=== PATIENT | male | born 1965 | race American Indian/Alaskan Native ===

== ENCOUNTER 2020-01-22 10:43 | Emergency (ER) | payer MEDICARE ==
[2020-01-22 11:23] VITALS: BP 148/82
--- NOTE | 2020-01-22 11:23 | Emergency Department Report ---
ED General Adult HPI - General Chief complaint: Headache Stated complaint: HEADACHE Time Seen by Provider: 01/22/20 10:52 Source: patient, EMS Mode of arrival: Stretcher Limitations: Physical Limitation - History of Present Illness Initial comments: 54-year-old male states he had a seizure last night and hit the right parietal occipital area of his skull on the wall. He states that EMS was summoned to his residence. However he felt fine and declined transport. This morning he states that he woke up with blurred vision. He states that he was having difficulty walking due to his blurred vision but not due to a loss of balance. He states that he walks with a cane ordinarily. 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 He states that his vision is back to normal now. He states that he has "a stigmatism". He is not complaining of headache. He denies soreness at the site where his head hit the wall or any pain of his neck. He denies any other injury. He woke up before 8:00 this morning. -: Gradual, hour(s) Associated Symptoms: denies other symptoms - Related Data Allergies Allergy/AdvReac Type Severity Reaction Status Date / Time No Known Allergies Allergy Unverified 04/11/18 03:26 ED Review of Systems ROS: Stated complaint: HEADACHE Other details as noted in HPI Constitutional: denies: chills, fever Eyes: vision change. denies: eye pain ENT: denies: ear pain, throat pain Respiratory: denies: cough, shortness of breath Cardiovascular: denies: chest pain, palpitations Endocrine: no symptoms reported Gastrointestinal: denies: abdominal pain, nausea, diarrhea Genitourinary: denies: urgency, dysuria Musculoskeletal: denies: back pain, joint swelling, arthralgia Skin: denies: rash, lesions Neurological: as per HPI. denies: headache, weakness, numbness, paresthesias, confusion, vertigo Psychiatric: denies: anxiety, depression Hematological/Lymphatic: denies: easy bleeding, easy bruising ED Past Medical Hx - Past Medical History Previous Medical History?: Yes Hx CVA: Yes Hx Seizures: Yes Additional medical history: Fracture neck, TBI - Social History Smoking Status: Never Smoker Substance Use Type: None ED Physical Exam - General Limitations: Physical Limitation General appearance: alert, in no apparent distress - Head Head exam: Present: normocephalic, other (Deformity of the calvarium/surgical scar, suspect old decompressive craniotomy) - Eye Eye exam: Present: normal appearance, other (Strabismus is noted). Absent: scleral icterus Pupils: Present: other (Denies any loss of acuity now) - ENT ENT exam: Present: mucous membranes moist - Neck Neck exam: Present: normal inspection. Absent: tenderness, meningismus - Respiratory Respiratory exam: Present: normal lung sounds bilaterally. Absent: respiratory distress - Cardiovascular Cardiovascular Exam: Present: regular rate, normal rhythm. Absent: systolic murmur, diastolic murmur, rubs, gallop - GI/Abdominal GI/Abdominal exam: Present: soft, normal bowel sounds. Absent: distended, t enderness, guarding, rebound, rigid - Rectal Rectal exam: Present: deferred - Extremities Exam Extremities exam: Present: other (Contracted left upper extremity) - Back Exam Back exam: Present: normal inspection - Neurological Exam Neurological exam: Present: alert, oriented X3, motor sensory deficit (Left hemiparesis, upper extremity is contracted lower 4 out of 5 compared with right.) - Psychiatric Psychiatric exam: Present: normal affect, normal mood - Skin Skin exam: Present: warm, dry, intact, normal color. Absent: rash ED Course Vital Signs 01/22/20 01/22/20 01/22/20 10:53 10:58 11:00 Temperature 97.8 F Pulse Rate 79 81 Respiratory 21 10 L Rate Blood Pressure 145/87 148/82 O2 Sat by Pulse 97 98 Oximetry - Reevaluation(s) Reevaluation #1: Patient in no distress and asymptomatic. Visual disturbance has resolved. He is appropriate for outpatient disposition. 01/22/20 12:37 ED Medical Decision Making - Lab Data Result diagrams: 01/22/20 11:08 01/22/20 11:08 Laboratory Results - last 24 hr 01/22/20 01/22/20 01/22/20 11:08 11:08 11:08 WBC 6.4 RBC 4.50 Hgb 13.3 Hct 41.0 MCV 91 MCH 30 MCHC 32 RDW 14.3 Plt Count 302 Lymph % (Auto) 15.3 [place] % (Auto) 8.8 H Eos % (Auto) 1.2 Baso % (Auto) 0.7 Lymph # (Auto) 1.0 L [place] # (Auto) 0.6 Eos # (Auto) 0.1 Baso # (Auto) 0.0 Seg Neutrophils % 74.0 H Seg Neutrophils # 4.7 PT 13.7 INR 1.04 APTT 27.9 Sodium 142 Potassium 3.9 Chloride 104.2 Carbon Dioxide 27 Anion Gap 15 BUN 8 L Creatinine 0.9 Estimated GFR > 60 BUN/Creatinine Ratio 9 Glucose 104 H Calcium 8.9 - Radiology Data FINDINGS: POSTOPERATIVE CHANGES: Patient is status post right frontal and parietal craniotomy. A mesh cranioplasty is in place. There is associated calvarial deformity. HEMORRHAGE: No evidence of intracranial hemorrhage or extra-axial fluid collection. EXTRA-AXIAL SPACES: Dilatation of cortical sulci over the right cerebral hemisphere is noted secondary to remote brain injury. VENTRICULAR SYSTEM: There is ex vacuo dilatation of the right lateral ventricle. This is unchanged. CEREBRAL PARENCHYMA: Large areas of encephalomalacia are present in the right frontal, parietal and occipital lobes. Temporal lobe is relatively spared. MIDLINE SHIFT OR HERNIATION: There is no mass effect. CEREBELLUM / BRAINSTEM: Atrophy of the right cerebral peduncle is noted secondary to Wallerian generation due to remote injury of the right cerebral hemisphere. Brain stem has an otherwise unremarkable appearance. Cerebellar hemispheres have an unremarkable appearance. 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 This is unchanged. INTRACRANIAL VESSELS:No abnormalities are identified on this noncontrast head CT. ORBITS: visualized portions of the orbits have an unremarkable appearance. SOFT TISSUES of HEAD: No significant abnormality. CALVARIUM: Status post operative changes as described above. PARANASAL SINUSES / MASTOID AIR CELLS: There is opacification of the right maxillary sinus. Mucosal disease is seen within several right-sided ethmoid air cells. 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 IMPRESSION: 1. Postoperative changes status post right frontal and parietal craniotomy. 2. Extensive encephalomalacia throughout the right cerebral hemisphere. 3. 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 4. Intracranial findings are stable in comparison to previous study. 5. No acute intracranial abnormality. 6. Interval development of opacification of the right maxillary sinus and mucosal thickening in several right-sided ethmoid air cells. Critical care attestation.: If time is entered above; I have spent that time in minutes in the direct care of this critically ill patient, excluding procedure time. ED Disposition Clinical Impression: Seizure, Visual disturbance Traumatic brain injury Qualifiers: Encounter type: sequela Loss of consciousness presence/duration: without LOC Qualified Code(s): S06.9X0S - Unspecified intracranial injury without loss of consciousness, sequela Disposition: TO HOME OR SELFCARE Is pt being admited?: No Does the pt Need Aspirin: No Condition: Stable Instructions: Recurrent Seizures Adult (ED) Additional Instructions: Continue your usual seizure medicine and follow-up with your neurology provider/primary care. Return to the emergency department any acute change or problem. See his eye doctor any recurrent visual problem. Referrals: ROSALIE NIXON MD [Staff Physician] - 3-5 Days Time of Disposition: 12:39
[2020-01-22 11:32] LABS: Basophils % (Auto) 0.7 % (0.0-1.8); Eosinophils # (Auto) 0.1 K/mm3 (0.0-0.4); Eosinophils % (Auto) 1.2 % (0.0-4.3); Hemoglobin 13.3 gm/dl (11.8-15.2); Lymphocytes % (Auto) 15.3 % (13.4-35.0); Mean Corpuscular HGB Conc 32 % (32-34); Mean Corpuscular Volume 91 fl (84-94); Monocytes # (Auto) 0.6 K/mm3 (0.0-0.8); Monocytes % (Auto) 8.8 % (0.0-7.3); Platelet Count 302 K/mm3 (140-440); Red Cell Distribution Width 14.3 % (13.2-15.2)
[2020-01-22 11:42] LABS: INR 1.04 (0.87-1.13)
[2020-01-22 11:44] LABS: Partial Thromboplastin Time 27.9 Sec. (24.2-36.6)
[2020-01-22 11:52] LABS: BUN/Creatinine Ratio 9; Blood Urea Nitrogen 8 mg/dL (9-20); Calcium 8.9 mg/dL (8.4-10.2); Hemolysis Index 12
--- NOTE | 2020-01-22 11:54 | Cat Scan Report ---
CT HEAD WITHOUT CONTRAST INDICATION / CLINICAL INFORMATION: Seizure. Blurred vision. History of recent fall. Remote history of neurosurgical procedure. TECHNIQUE: All CT scans at this location are performed using CT dose reduction for ALARA by means of automated e xposure control. COMPARISON: Head CT 04/11/2018 FINDINGS: POSTOPERATIVE CHANGES: Patient is status post right frontal and parietal craniotomy. A mesh craniopla sty is in place. There is associated calvarial deformity. HEMORRHAGE: No evidence of intracranial hemorrhage or extra-axial fluid collection. EXTRA-AXIAL SPACES: Dilatation of cortical sulci over the right cerebral hemisphere is noted secondar y to remote brain injury. VENTRICULAR SYSTEM: There is ex vacuo dilatation of the right lateral ventricle. This is unchanged. CEREBRAL PARENCHYMA: Large areas of encephalomalacia are present in the right frontal, parietal and o ccipital lobes. Temporal lobe is relatively spared. MIDLINE SHIFT OR HERNIATION: There is no mass effect. CEREBELLUM / BRAINSTEM: Atrophy of the right cerebral peduncle is noted secondary to Wallerian genera tion due to remote injury of the right cerebral hemisphere. Brain stem has an otherwise unremarkable appearance. Cerebellar hemispheres have an unremarkable appearance. Incidental note is made of a bhakti cisterna magna. MIDLINE STRUCTURES:No abnormalities of the pituitary gland or pineal region are identified.Note is ma de of a sphenoid encephalocele extending into the anterior aspect of the right sphenoid sinus. This i s unchanged. INTRACRANIAL VESSELS:No abnormalities are identified on this noncontrast head CT. ORBITS: visualized portions of the orbits have an unremarkable appearance. SOFT TISSUES of HEAD: No significant abnormality. CALVARIUM: Status post operative changes as described above. PARANASAL SINUSES / MASTOID AIR CELLS: There is opacification of the right maxillary sinus. Mucosal d isease is seen within several right-sided ethmoid air cells. 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 IMPRESSION: 1. Postoperative changes status post right frontal and parietal craniotomy. 2. Extensive encephalomalacia throughout the right cerebral hemisphere. 3. 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 4. Intracranial findings are stable in comparison to previous study. 5. No acute intracranial abnormality. 6. Interval development of opacification of the right maxillary sinus and mucosal thickening in sever al right-sided ethmoid air cells. Signer Name: Luis Dong MD Signed: 01/22/2020 11:50 AM Workstation Name: [employer]
[2020-01-22] MEDS ORDERED: HYDROmorphone 1 MG/1 ML INJ IV ONE (12:35)
[2020-01-22] MEDS ORDERED: diphenhydrAMINE 50 MG/ML VIAL IV ONE (12:35)
[2020-01-22] MEDS ORDERED: ONDANSETRON 4 MG/2 ML INJ IV ONE (12:35)
[2020-01-22 13:06] LABS: Alanine Aminotransferase 12 units/L (7-56); Albumin 3.9 g/dL (3.9-5)
[2020-01-22 13:18] LABS: Bilirubin,Direct < 0.2 mg/dL (0-0.2)
== END 2020-01-22 13:30 | disposition home or self-care (01) ==
LOC: ED 10:43
DX: S06.9X0S Unspecified intracranial injury without loss of consciousness, sequela (principal); R56.9 Unspecified convulsions; H53.8 Other visual disturbances; Y92.89 Other specified places as the place of occurrence of the external cause; Z86.73 Personal history of transient ischemic attack (TIA), and cerebral infarction without residual deficits
CPT/HCPCS: 36415; 70450; 80048; 80076; 84100; 85025; 85610; 85730

== ENCOUNTER 2020-02-05 22:40 | Emergency (ER) | payer MEDICARE ==
[2020-02-05 23:39] VITALS: BP 147/95
== END 2020-02-06 06:29 | disposition left against medical advice (07) ==
LOC: ED 22:40
DX: M79.605 Pain in left leg (principal); Z53.21 Procedure and treatment not carried out due to patient leaving prior to being seen by health care provider

== ENCOUNTER 2020-02-07 10:48 | Emergency (ER) | payer MEDICARE ==
[2020-02-07 12:33] LABS: Basophils % (Auto) 0.5 % (0.0-1.8); Eosinophils # (Auto) 0.1 K/mm3 (0.0-0.4); Eosinophils % (Auto) 1.8 % (0.0-4.3); Hematocrit 38.7 % (35.5-45.6); Hemoglobin 12.7 gm/dl (11.8-15.2); Lymphocytes # (Auto) 1.3 K/mm3 (1.2-5.4); Mean Corpuscular HGB Conc 33 % (32-34); Mean Corpuscular Volume 90 fl (84-94); Monocytes # (Auto) 0.7 K/mm3 (0.0-0.8); Monocytes % (Auto) 9.5 % (0.0-7.3); Platelet Count 295 K/mm3 (140-440); Red Cell Distribution Width 14.7 % (13.2-15.2)
[2020-02-07 13:09] LABS: Alanine Aminotransferase 17 units/L (7-56); Albumin 4.3 g/dL (3.9-5); BUN/Creatinine Ratio 13; Blood Urea Nitrogen 10 mg/dL (9-20); Calcium 8.8 mg/dL (8.4-10.2); Hemolysis Index 20
--- NOTE | 2020-02-07 15:33 | Emergency Department Report ---
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 Patient is compliant with his Keppra 1500 mg twice daily with last dose this morning. Patient complains of a frontal headache but typically has headaches after his seizures. Patient denies any new neurologic deficit. He uses a cane for left-sided weakness. Patient complains of left medial ankle pain secondary to fall 3 days ago. Patient states he has had a seizure 2 days ago. Patient did present here for left after triage and was not seen by provider as per medical. - Related Data Previous Rx's Medication Instructions Recorded Last Taken Type HYDROcodone/APAP 5-325 [[place] 1 each PO Q6HR PRN #15 tablet 02/07/20 Unknown Rx 5/325] levETIRAcetam [Keppra TAB] 2,000 mg PO BID 30 Days tab 02/07/20 Unknown Rx Allergies Allergy/AdvReac Type Severity Reaction Status Date / Time No Known Allergies Allergy Verified 02/07/20 16:12 ED Review of Systems ROS: Stated complaint: 2X SEIZURE Other details as noted in HPI Comment: All other systems reviewed and negative ED Past Medical Hx - Past Medical History Hx CVA: Yes (left side weakness) Hx Seizures: Yes Additional medical history: Fracture neck, TBI - Surgical History Additional Surgical History: brain - Social History Smoking Status: Never Smoker Substance Use Type: None - Medications Home Medications: Home Medications Medication Instructions Recorded Confirmed Last Taken Type HYDROcodone/APAP 5-325 [[place] 1 each PO Q6HR PRN #15 tablet 02/07/20 Unknown Rx 5/325] levETIRAcetam [Keppra TAB] 2,000 mg PO BID 30 Days tab 02/07/20 Unknown Rx ED Physical Exam - General Limitations: No Limitations - Other Other exam information: General: No acute distress Head: Atraumatic Eyes: normal appearance ENT: Moist mucous membranes Neck: Normal appearance, no midline tenderness Chest: Clear to auscultation bilaterally CV: Regular rate and rhythm Abdomen: Soft, normal bowel sounds, nontender, nondistended, no rebound or guarding Back: Normal inspection Extremity: Left medial ankle swelling. Tenderness palpation to left ankle, pain with bearing weight. Diffuse foot pain. Neuro: Alert O x 3, left-sided weakness with contracture of the left arm and limited movement. Left leg weakness compared to the right chronic unchanged as per patient Psych: Appropriate behavior Skin: No rash ED Course Vital Signs 02/07/20 02/07/20 02/07/20 11:50 15:31 16:00 Temperature 98.1 F Pulse Rate 71 Respiratory 20 Rate Blood Pressure 147/76 151/79 Blood Pressure 149/86 [Left] O2 Sat by Pulse 100 97 94 Oximetry ED Medical Decision Making - Lab Data Result diagrams: 02/07/20 Unknown 02/07/20 Unknown Lab Results 02/07/20 02/07/20 Range/Units Unknown Unknown WBC 7.5 (4.5-11.0) K/mm3 RBC 4.30 (3.65-5.03) M/mm3 Hgb 12.7 (11.8-15.2) gm/dl Hct 38.7 (35.5-45.6) % MCV 90 (84-94) fl MCH 30 (28-32) pg MCHC 33 (32-34) % RDW 14.7 (13.2-15.2) % Plt Count 295 (140-440) K/mm3 Lymph % (Auto) 17.0 (13.4-35.0) % [place] % (Auto) 9.5 H (0.0-7.3) % Eos % (Auto) 1.8 (0.0-4.3) % Baso % (Auto) 0.5 (0.0-1.8) % Lymph # (Auto) 1.3 (1.2-5.4) K/mm3 [place] # (Auto) 0.7 (0.0-0.8) K/mm3 Eos # (Auto) 0.1 (0.0-0.4) K/mm3 Baso # (Auto) 0.0 (0.0-0.1) K/mm3 Seg Neutrophils % 71.2 H (40.0-70.0) % Seg Neutrophils # 5.3 (1.8-7.7) K/mm3 Sodium 140 (137-145) mmol/L Potassium 4.0 (3.6-5.0) mmol/L Chloride 102.8 (98-107) mmol/L Carbon Dioxide 23 (22-30) mmol/L Anion Gap 18 mmol/L BUN 10 (9-20) mg/dL Creatinine 0.8 (0.8-1.3) mg/dL Estimated GFR > 60 ml/min BUN/Creatinine Ratio 13 % Glucose 106 H (75-100) mg/dL Calcium 8.8 (8.4-10.2) mg/dL Total Bilirubin 0.40 (0.1-1.2) mg/dL AST 15 (5-40) units/L ALT 17 (7-56) units/L Alkaline Phosphatase 98 (35-129) units/L Total Protein 6.9 (6.3-8.2) g/dL Albumin 4.3 (3.9-5) g/dL Albumin/Globulin Ratio 1.7 % - Radiology Data Radiology results: report reviewed LEFT FOOT 2 VIEWS LEFT ANKLE 3 VIEWS INDICATION: ankle and foot pain after fall injury. COMPARISON: None. IMPRESSION: There is diffuse soft tissue swelling or edema. A mildly comminuted fracture is identified in the posterior calcaneus. Fracture lines appear to extend to the inferior surface, posterior surface and subtalar joint superiorly. The remaining bones of the left ankle and foot are intact. Osteopenia is noted. Mild diffuse osteoarthritic changes are present. No erosive joint pathology. CT head/brain wo con INDICATION / CLINICAL INFORMATION: 54 years Male; LEFT SIDE WEAKNESS. TECHNIQUE: Routine CT head without contrast. All CT scans at this location are performed using CT dose reduction for ALARA by means of automated exposure control. COMPARISON: The study is compared to the previous CT of 01/22/2020. FINDINGS: BRAIN / INTRACRANIAL CONTENTS: There is extensive right frontotemporal cranioplasty with underlying encephalomalacia involving the right cerebral hemisphere which may be related to old infarcts. However, there are also findings along the inferior frontal lobes greater on the right and the findings may be related to previous trauma. There is notable ex vacuo dilatation of the right lateral ventricle. The findings correlate with the previous CT. There is no clear CT evidence of acute intracranial hemorrhage or significant mass effect ORBITS: No significant abnormality of visualized orbits. SINUSES / MASTOIDS: There is continued opacification of the visualized right maxillary sinus with milder findings within the right ethmoid and frontal sinuses. There is a persistent a defect along the planum sphenoidale which also correlates with the prior study. CRANIOCERVICAL JUNCTION: No significant abnormality. ADDITIONAL FINDINGS: None. IMPRESSION: 1. There is continued extensive right-sided cranioplasty and extensive underlying encephalomalacia as detailed above. There is no CT evidence of acute intracranial hemorrhage or significant overall change from 01/22/2020. - Medical Decision Making 54 yo male with a breakthrough seizure per after consultation with his n eurologist Dr Mary his kepra will be increased to 2000 mg bid. pt received a posterior splint for calcaneous fracture. Pt has a cane, a wheeled chair walker, a home health aide, and a roommate to help him at home. Patient also goes to physical therapy 3 times a week. Patient instructed to be as n onweightbearing as possible and to follow-up with orthopedics and inform his physical therapist of his new injury Critical Care Time: No Critical care attestation.: If time is entered above; I have spent that time in minutes in the direct care of this critically ill patient, excluding procedure time. ED Disposition Clinical Impression: Breakthrough seizure, Post-seizure headache, Left calcaneal fracture Disposition: TO HOME OR SELFCARE Is pt being admited?: No Does the pt Need Aspirin: No Condition: Stable Instructions: Epilepsy (ED), Calcaneal Fracture (ED) Additional Instructions: Take the medication as prescribed. Follow-up with your doctor or doctor/clinic provided. Return if symptoms worsen as indicated by your discharge instructi ons. Try to bear weight on your left foot until cleared by the orthopedic doctor to do so. Prescriptions: levETIRAcetam [Keppra TAB] 2,000 mg PO BID 30 Days tab HYDROcodone/APAP 5-325 [[place] 5/325] 1 each PO Q6HR PRN #15 tablet PRN Reason: Pain Referrals: [facility] [Other] - 3-5 Days VERONICA OJEDA MD [Staff Physician] - 3-5 Days (Orthopedic doctor ) Time of Disposition: 18:47
[2020-02-07] MEDS ORDERED: MORPHINE 4 MG/1 ML INJ IV ONE (15:35)
[2020-02-07] MEDS ORDERED: ONDANSETRON 4 MG/2 ML INJ IV ONE (15:35)
--- NOTE | 2020-02-07 16:17 | XRay Report ---
LEFT FOOT 2 VIEWS LEFT ANKLE 3 VIEWS INDICATION: ankle and foot pain after fall injury. COMPARISON: None. IMPRESSION: There is diffuse soft tissue swelling or edema. A mildly comminuted fracture is identifi ed in the posterior calcaneus. Fracture lines appear to extend to the inferior surface, posterior elijah face and subtalar joint superiorly. The remaining bones of the left ankle and foot are intact. Osteop enia is noted. Mild diffuse osteoarthritic changes are present. No erosive joint pathology. Signer Name: Dannie Michelle Jr, MD Signed: 02/07/2020 4:12 PM Workstation Name: [id number]
--- NOTE | 2020-02-07 16:52 | Cat Scan Report ---
CT head/brain wo con INDICATION / CLINICAL INFORMATION: 54 years Male; LEFT SIDE WEAKNESS. TECHNIQUE: Routine CT head without contrast. All CT scans at this location are performed using CT dos e reduction for ALARA by means of automated exposure control. COMPARISON: The study is compared to the previous CT of 01/22/2020. FINDINGS: BRAIN / INTRACRANIAL CONTENTS: There is extensive right frontotemporal cranioplasty with underlying e ncephalomalacia involving the right cerebral hemisphere which may be related to old infarcts. However , there are also findings along the inferior frontal lobes greater on the right and the findings may be related to previous trauma. There is notable ex vacuo dilatation of the right lateral ventricle. T he findings correlate with the previous CT. There is no clear CT evidence of acute intracranial hemor rhage or significant mass effect ORBITS: No significant abnormality of visualized orbits. SINUSES / MASTOIDS: There is continued opacification of the visualized right maxillary sinus with mil izaiah findings within the right ethmoid and frontal sinuses. There is a persistent a defect along the p lanum sphenoidale which also correlates with the prior study. CRANIOCERVICAL JUNCTION: No significant abnormality. ADDITIONAL FINDINGS: None. IMPRESSION: 1. There is continued extensive right-sided cranioplasty and extensive underlying encephalomalacia as detailed above. There is no CT evidence of acute intracranial hemorrhage or significant overall palumbo ge from 01/22/2020. Signer Name: Igor Grace MD Signed: 02/07/2020 4:47 PM Workstation Name: [id number]
[2020-02-07] MEDS ORDERED: levETIRAcetam 500 MG in DEXTROSE 5% IN WATER 100 ML IV ONE (17:00)
[2020-02-07 21:17] VITALS: BP 166/83
== END 2020-02-08 05:00 | disposition home or self-care (01) ==
LOC: ED 10:48
DX: S92.002A Unspecified fracture of left calcaneus, initial encounter for closed fracture (principal); G40.919 Epilepsy, unspecified, intractable, without status epilepticus; G44.89 Other headache syndrome; Z79.899 Other long term (current) drug therapy; Z86.73 Personal history of transient ischemic attack (TIA), and cerebral infarction without residual deficits; Z98.890 Other specified postprocedural states; X58.XXXA Exposure to other specified factors, initial encounter; Y93.89 Activity, other specified; Y92.89 Other specified places as the place of occurrence of the external cause; Y99.8 Other external cause status
CPT/HCPCS: 29515; 36415; 70450; 73610; 73620; 80053; 85025; 96365; 96375; 99285; J1953; J2270; J2405

== ENCOUNTER 2020-08-15 11:08 | Emergency (ER) | payer MEDICARE ==
[2020-08-15] MEDS ORDERED: levETIRAcetam 1000 MG/NS 0.75% 1,000 MG/100 ML BAG IV ONE (11:18)
--- NOTE | 2020-08-15 11:23 | Emergency Department Report ---
ED Altered Mental Status HPI - General Stated Complaint: AMS PUI?: No Time Seen by Provider: 08/15/20 11:18 Source: patient, EMS, old records reviewed Mode of arrival: Stretcher Limitations: Altered Mental Status - History of Present Illness Initial Comments: Chief complaint: Altered mental status HPI: Is a 54-year-old male with history of traumatic brain injury, left-sided hemiparesis, seizure disorder who presents with altered mental status. Family member called EMS. Patient appears lethargic but protecting airway according to EMS. Patient does not give any history at this time. According to previous ED documentation, patient takes Keppra for seizure. According to previous ED documentation, patient walks with a cane. I reassessed patient after brief observation. Patient is alert. He is comfortable. He has normal voice. He denies any pain. I asked him if he feels he that he may have had a seizure, "he states that is what they say happened.". Complaint: altered mental status, decreased responsiveness -: This morning Severity: mild Consistency of Symptoms: waxing and waning - Related Data Previous Rx's Medication Instructions Recorded Last Taken Type HYDROcodone/APAP 5-325 [[place] 1 each PO Q6HR PRN #15 tablet 02/07/20 Unknown Rx 5/325] levETIRAcetam [Keppra TAB] 2,000 mg PO BID 30 Days tab 02/07/20 Unknown Rx Allergies Allergy/AdvReac Type Severity Reaction Status Date / Time No Known Allergies Allergy Verified 02/07/20 16:12 ED Review of Systems ROS: Stated complaint: AMS Other details as noted in HPI Comment: All other systems reviewed and negative (Altered mental status) Constitutional: denies: chills, fever Respiratory: denies: cough, shortness of breath Gastrointestinal: denies: abdominal pain, nausea, vomiting ED Past Medical Hx - Past Medical History Previous Medical History?: Yes Hx CVA: Yes (left side weakness) Hx Seizures: Yes Additional medical history: Fracture neck, TBI - Surgical History Past Surgical History?: Yes Additional Surgical History: brain - Social History Smoking Status: Never Smoker Substance Use Type: None - Medications Home Medications: Home Medications Medication Instructions Recorded Confirmed Last Taken Type HYDROcodone/APAP 5-325 [[place] 1 each PO Q6HR PRN #15 tablet 02/07/20 Unknown Rx 5/325] levETIRAcetam [Keppra TAB] 2,000 mg PO BID 30 Days tab 02/07/20 Unknown Rx ED Physical Exam - General Limitations: Altered Mental Status General appearance: other (Awake nonverbal protecting airway) - Head Head exam: Present: atraumatic, normocephalic - Eye Eye exam: Present: normal appearance - ENT ENT exam: Present: mucous membranes moist - Neck Neck exam: Present: normal inspection, full ROM - Respiratory Respiratory exam: Present: normal lung sounds bilaterally. Absent: respiratory distress, wheezes, rales, rhonchi, stridor - Cardiovascular Cardiovascular Exam: Present: regular rate, normal rhythm, normal heart sounds. Absent: systolic murmur, diastolic murmur, rubs, gallop - GI/Abdominal GI/Abdominal exam: Present: soft, normal bowel sounds. Absent: distended, tenderness, guarding, rebound - Extremities Exam Extremities exam: Present: other (Contracted left upper extremity, arm flex, hand closed in fist) - Neurological Exam Neurological exam: Present: altered - Psychiatric Psychiatric exam: Present: flat affect - Skin Skin exam: Present: warm, dry, intact, normal color. Absent: rash ED Course Vital Signs 08/15/20 08/15/20 08/15/20 12:39 12:43 13:15 Temperature 98.4 F Pulse Rate 69 95 H 66 Respiratory 10 L 15 13 Rate Blood Pressure 142/82 142/82 146/90 Blood Pressure 142/82 [Right] O2 Sat by Pulse 98 99 98 Oximetry 08/15/20 08/15/20 08/15/20 13:45 14:00 14:15 Temperature Pulse Rate 67 63 66 Respiratory 15 17 18 Rate Blood Pressure 137/83 136/75 136/75 Blood Pressure [Right] O2 Sat by Pulse 96 97 100 Oximetry - Reevaluation(s) Reevaluation #1: 08/15/20 13:29 I reassessed patient. Patient is comfortable. He is symptom-free. He requests [employer] transportation home - Medical Decision Making Seizure, postictal state: After brief conversation. Patient was at his baseline mental status. Patient received IV Keppra. Patient was observed in emergency department for 3 and half hours without recurrent seizure. Patient is discharged home. I do not suspect TIA CVA. Patient had typical presentation for lethargic postictal state status post seizure. Critical care attestation.: If time is entered above; I have spent that time in minutes in the direct care of this critically ill patient, excluding procedure time. ED Disposition Clinical Impression: Recurrent seizures, Seizure disorder, Traumatic brain injury Disposition: DC-01 TO HOME OR SELFCARE Is pt being admited?: No Does the pt Need Aspirin: No Condition: Stable Referrals: RENARD RIVERS MD [Referring] - 3-5 Days
[2020-08-15 17:29] VITALS: BP 156/78
== END 2020-08-15 17:30 | disposition home or self-care (01) ==
LOC: ED 11:08
DX: G40.909 Epilepsy, unspecified, not intractable, without status epilepticus (principal); Z86.73 Personal history of transient ischemic attack (TIA), and cerebral infarction without residual deficits; Z98.890 Other specified postprocedural states; Z79.899 Other long term (current) drug therapy
CPT/HCPCS: 96374; 99283; J1953

== ENCOUNTER 2020-08-25 11:17 | Emergency (ER) | payer MEDICARE ==
--- NOTE | 2020-08-25 13:05 | Event Note ---
ED Screening Note Date of service: 08/25/20 Time: 13:03 ED Screening Note: 54-year-old male patient with history of seizure disorder (on Keppra) and prior craniotomy presents emergency department with reported complaints of a seizure occurring this morning. Patient does not recall the events surrounding the seizure. He was reportedly told by family member that he looked like he was having a seizure and he was "really hot and sweaty." States he has been compliant with his anticonvulsant medication. No recent changes to the dosing or frequency. No recent trauma. No loss of bladder/bowel control. Currently, patient feels as though he has returned to his baseline. He does not appear postictal in triage. General: Awake, appropriately interactive, no acute distress. Head: Post-surgical changes noted. Neck: Supple. Full range of motion intact. Cardiovascular: Normal peripheral perfusion. Pulmonary: No respiratory distress. Patient is speaking normally without use of accessory muscles. Skin: No apparent rashes or lesions. Neurological: No facial asymmetry. Speech is clear. Follows commands. Patient is alert and oriented. Musculoskeletal: Moves all four extremities spontaneously with normal range of motion. Psych: Cooperative. Appropriate mood and affect. I have greeted and performed a focused rapid initial assessment of this patient. A comprehensive ED assessment and evaluation of the patient, analysis of all test results, and completion of the medical decision-making process will be conducted by additional ED providers. This initial assessment/diagnostic orders/clinical plan/treatment(s) is/are subject to change based on patients health status, clinical progression and re-assessment. Further treatment and workup at subsequent clinical provider's discretion. Patient/guardian urged not to elope from the ED as their condition may be serious if not clinically assessed and managed.
--- NOTE | 2020-08-25 13:33 | XRay Report ---
CHEST PA AND LATERAL VIEWS INDICATION: seizure. COMPARISON: None FINDINGS: Support devices: None Heart: Normal Lungs/Pleura: No acute pulmonary or pleural findings. IMPRESSION: 1. No significant abnormality. Signer Name: Osito Barillas MD Signed: 08/25/2020 1:28 PM Workstation Name: [id number]
[2020-08-25 14:19] LABS: Bilirubin,Urine NEG (Negative); Blood,Urine NEG (Negative); Color,Urine Amber (Yellow); Mucus,Urine 3+ /HPF
[2020-08-25 14:29] LABS: Alanine Aminotransferase 19 units/L (7-56); Albumin 4.8 g/dL (3.9-5); BUN/Creatinine Ratio 9; Blood Urea Nitrogen 8 mg/dL (9-20); Calcium 9.4 mg/dL (8.4-10.2); Hemolysis Index 19
[2020-08-25 14:52] LABS: Basophils # (Auto) 0.1 K/mm3 (0.0-0.1); Eosinophils # (Auto) 0.1 K/mm3 (0.0-0.4); Eosinophils % (Auto) 1.1 % (0.0-4.3); Hematocrit 43.7 % (35.5-45.6); Hemoglobin 14.5 gm/dl (11.8-15.2); Lymphocytes % (Auto) 15.4 % (13.4-35.0); Mean Corpuscular HGB Conc 33 % (32-34); Mean Corpuscular Volume 96 fl (84-94); Monocytes # (Auto) 0.5 K/mm3 (0.0-0.8); Monocytes % (Auto) 7.4 % (0.0-7.3); Platelet Count 340 K/mm3 (140-440); Red Blood Count 4.55 M/mm3 (3.65-5.03); Red Cell Distribution Width 15.2 % (13.2-15.2)
[2020-08-25] MEDS ORDERED: levETIRAcetam 500 MG TAB PO ONE (16:54)
--- NOTE | 2020-08-25 17:00 | Emergency Department Report ---
ED General Adult HPI - General Chief complaint: Seizure Stated complaint: PT FEELS HOT NO FEVER Time Seen by Provider: 08/25/20 16:47 Source: patient, EMS Mode of arrival: Wheelchair Limitations: Physical Limitation - History of Present Illness Initial comments: This is a 54-year-old male with traumatic brain injury status post craniotomy with pre-existing hemiparesis and seizure disorder. He was here on 08/14/2020 treated with IV Keppra. He was discharged at that time. He states, I think I had a seizure today. He denies any traumatic injury. I reviewed his previous medical records. It did not seem evident that the patient was given a prescrip tion upon discharge. The patient is confirming to me that he did not get a prescription of Keppra when he left. He is not compliant with this medication. Otherwise he reports no change from his baseline status. -: unknown Associated Symptoms: denies other symptoms - Related Data Previous Rx's Medication Instructions Recorded Last Taken Type HYDROcodone/APAP 5-325 [[place] 1 each PO Q6HR PRN #15 tablet 02/07/20 Unknown Rx 5/325] levETIRAcetam [Keppra TAB] 2,000 mg PO BID 30 Days tab 02/07/20 Unknown Rx levETIRAcetam [Keppra TAB] 1,000 mg PO BID #60 tab 08/25/20 Unknown Rx Allergies Allergy/AdvReac Type Severity Reaction Status Date / Time No Known Allergies Allergy Verified 08/25/20 12:22 ED Review of Systems ROS: Stated complaint: PT FEELS HOT NO FEVER Other details as noted in HPI Comment: All other systems reviewed and negative ED Past Medical Hx - Past Medical History Hx CVA: Yes (left side weakness) Hx Arthritis: Yes Hx Seizures: Yes Additional medical history: Fracture neck, TBI - Surgical History Additional Surgical History: brain - Social History Smoking Status: Never Smoker Substance Use Type: None - Medications Home Medications: Home Medications Medication Instructions Recorded Confirmed Last Taken Type HYDROcodone/APAP 5-325 [[place] 1 each PO Q6HR PRN #15 tablet 02/07/20 Unknown Rx 5/325] levETIRAcetam [Keppra TAB] 2,000 mg PO BID 30 Days tab 02/07/20 Unknown Rx levETIRAcetam [Keppra TAB] 1,000 mg PO BID #60 tab 08/25/20 Unknown Rx ED Physical Exam - General Limitations: Physical Limitation General appearance: alert - Head Head exam: Present: other (Previous healed craniotomy scars) - Eye Eye exam: Absent: scleral icterus, nystagmus - ENT ENT exam: Present: normal exam, normal orophraynx, other (No tongue injury) - Neck Neck exam: Present: normal inspection - Respiratory Respiratory exam: Present: normal lung sounds bilaterally - Cardiovascular Cardiovascular Exam: Present: regular rate, normal rhythm. Absent: systolic murmur, diastolic murmur, rubs, gallop - GI/Abdominal GI/Abdominal exam: Present: soft. Absent: distended, tenderness - Extremities Exam Extremities exam: Present: other (Contracted extremities associated with hemiplegia) - Back Exam Back exam: Present: other (Unable to examine) - Neurological Exam Neurological exam: Present: alert, CN II-XII intact (No acute findings), motor sensory deficit (Unchanged from baseline) - Psychiatric Psychiatric exam: Present: normal affect, flat affect - Skin Skin exam: Present: warm, dry, intact ED Course Vital Signs 08/25/20 08/25/20 08/25/20 12:20 16:17 16:30 Temperature 98.7 F Pulse Rate 73 72 59 L Respiratory 20 10 L 13 Rate Blood Pressure 119/72 132/79 O2 Sat by Pulse 98 98 100 Oximetry - Reevaluation(s) Reevaluation #1: I do not see an indication for further medical screening of this patient at this time. It does appear he is noncompliant with his Keppra. It does appear likely that he is noncompliant with follow-up. 08/25/20 17:09 Reevaluation #2: I see the patient was on Keppra 2000 mg twice daily in 2019. she will be started on a gram twice daily. 08/25/20 17:12 ED Medical Decision Making - Lab Data Result diagrams: 08/25/20 13:43 08/25/20 13:43 Critical care attestation.: If time is entered above; I have spent that time in minutes in the direct care of this critically ill patient, excluding procedure time. ED Disposition Clinical Impression: Recurrent seizures, Seizure disorder Disposition: - TO HOME OR SELFCARE Is pt being admited?: No Does the pt Need Aspirin: No Condition: Stable Instructions: Seizure, Adult, Ulhi-op-Digh Additional Instructions: Follow-up with the neurologist Dr. Rivers as previously referred. Rx Keppra. If you do not have a primary care provider see referral. Return to the emergency department any acute change or problem as needed. Prescriptions: levETIRAcetam [Keppra TAB] 1,000 mg PO BID #60 tab Referrals: PRIMARY MD JUAQUIN [Primary Care Provider] - 3-5 Days RENARD RIVERS MD [Referring] - 3-5 Days [facility] [Provider Group] - 3-5 Days Time of Disposition: 17:13
[2020-08-25 19:07] VITALS: BP 144/80
--- NOTE | 2020-08-27 12:58 | Electrocardiograph Report ---
[facility] Test Date: 2020-08-25 Test Time: 13:55:48 Pat Name: GALE RAY Department: Room: Gender: M Cruise Staff Member: VON : 1965 Requested By: DALY MCDANIEL Order Number: [id number] Reading MD: Tammy Chavez Measurements Intervals [place] Rate: 66 P: 3 AL: 161 QRS: -3 QRSD: 94 T: 19 QT: 403 QTc: 422 Interpretive Statements Sinus rhythm No previous ECG available for comparison Electronically Signed On 08-27-2020 12:57:33 EDT by Tammy Chavez
== END 2020-08-25 19:07 | disposition home or self-care (01) ==
LOC: ED 11:17
DX: G40.909 Epilepsy, unspecified, not intractable, without status epilepticus (principal); M19.91 Primary osteoarthritis, unspecified site; Z86.73 Personal history of transient ischemic attack (TIA), and cerebral infarction without residual deficits; Z79.899 Other long term (current) drug therapy
CPT/HCPCS: 36415; 71046; 80053; 80320; 81001; 82550; 83735; 84484; 85025; 87086; 93005; G0480

== ENCOUNTER 2020-11-04 09:56 | Emergency (ER) | payer MEDICARE ==
[2020-11-04] MEDS ORDERED: LACTATED RINGERS 1,000 ML IV ONE (10:16)
[2020-11-04] MEDS ORDERED: levETIRAcetam 1000 MG/NS 0.75% 1,000 MG/100 ML BAG IV ONE ×2 (10:16→10:17)
--- NOTE | 2020-11-04 10:18 | Emergency Department Report ---
ED General Adult HPI - General Chief complaint: Seizure Stated complaint: SEIZURE PUI?: No Time Seen by Provider: 11/04/20 10:08 Source: patient, EMS ( EMS documentation not available at time of chart dictation ), RN notes reviewed Mode of arrival: Stretcher Limitations: Physical Limitation - History of Present Illness Initial comments: Past medical history: Traumatic brain injury, seizure, left-sided hemiparesis Neurology: Dr. Miguelangel Rivers The patient is a 54-year-old gentleman. He presents to the ER today with a complaint of recurrent nontraumatic seizure. The patient has been seen in this department in the past for similar complaints. The patient himself denies physical pain. He felt improved after 2 g of Keppra. At the moment, he denies headache, neck pain, chest pain, abdominal pain, shortness of breath. He reports that he has since accidentally urinated on himself, (Not secondary to seizure), and is requesting to be changed. It appears that he may have had 1 or 2 seizures earlier on today. If they were focal or generalized tonic-clonic. It is not known how long they lasted for. EMS reports patient had normal vital signs in the field. EMS reported no trauma, and stated they found the patient in bed. Patient not accompanied by friends or family at this time for collateral information/additional information. -: This morning Improves with: none Worsens with: none - Related Data Previous Rx's Medication Instructions Recorded Last Taken Type levETIRAcetam [Keppra TAB] 1,000 mg PO BID #60 tab 08/25/20 Unknown Rx Nitrofurantoin [place]/M-Cryst 100 mg PO Q12HR #13 capsule 11/04/20 Unknown Rx [Macrobid CAP] levETIRAcetam [Keppra TAB] 2,000 mg PO BID 30 Days #60 tab 11/04/20 Unknown Rx Allergies Allergy/AdvReac Type Severity Reaction Status Date / Time No Known Allergies Allergy Verified 08/25/20 12:22 ED Review of Systems ROS: Stated complaint: SEIZURE Other details as noted in HPI Constitutional: denies: fever Eyes: denies: eye discharge ENT: denies: epistaxis Respiratory: denies: cough Cardiovascular: denies: chest pain Genitourinary: denies: dysuria ED Past Medical Hx - Past Medical History Hx CVA: Yes (left side weakness) Hx Arthritis: Yes Hx Seizures: Yes Additional medical history: Fracture neck, TBI - Surgical History Additional Surgical History: brain - Social History Smoking Status: Never Smoker Substance Use Type: None - Medications Home Medications: Home Medications Medication Instructions Recorded Confirmed Last Taken Type levETIRAcetam [Keppra TAB] 1,000 mg PO BID #60 tab 08/25/20 Unknown Rx Nitrofurantoin [place]/M-Cryst 100 mg PO Q12HR #13 capsule 11/04/20 Unknown Rx [Macrobid CAP] levETIRAcetam [Keppra TAB] 2,000 mg PO BID 30 Days #60 tab 11/04/20 Unknown Rx ED Physical Exam - General Limitations: Physical Limitation General appearance: alert, in no apparent distress - Head Head exam: Present: atraumatic, normocephalic - Eye Eye exam: Present: normal appearance, EOMI. Absent: nystagmus - ENT ENT exam: Present: normal exam, normal orophraynx, mucous membranes moist, normal external ear exam - Neck Neck exam: Present: normal inspection, full ROM. Absent: tenderness, meningismus - Respiratory Respiratory exam: Present: normal lung sounds bilaterally. Absent: respiratory distress, wheezes, rales, rhonchi, stridor, decreased breath sounds - Cardiovascular Cardiovascular Exam: Present: regular rate, normal rhythm, normal heart sounds. Absent: bradycardia, tachycardia, irregular rhythm, systolic murmur, diastolic murmur, rubs, gallop - GI/Abdominal GI/Abdominal exam: Present: soft. Absent: distended, tenderness, guarding, rebound, rigid, pulsatile mass - Rectal Rectal exam: Present: deferred - Extremities Exam Extremities exam: Present: normal inspection (2+ pulses noted in the bilateral upper and lower extremities. There is no palpable cord. negative Homans sign. Muscular compartments are soft. The pelvis is stable.), full ROM (Range of motion intact in the right arm and right leg. Minimal range of motion of the left arm and left leg. Chronic hemiparesis left hemibody.), other (Venous stasis changes noted in the bilateral lower extremities) - Back Exam Back exam: Present: normal inspection. Absent: tenderness, CVA tenderness (R), CVA tenderness (L), paraspinal tenderness, vertebral tenderness - Neurological Exam Neurological exam: Present: alert, motor sensory deficit (3 out of 5 strength left arm and left leg. 5 out of 5 strength right arm and right leg), other (There is no facial droop. The tongue is midline. The extraocular movements are intact bilaterally. Sensation is intact to light touch in 4 extremities) - Psychiatric Psychiatric exam: Present: flat affect - Skin Skin exam: Present: warm, dry, intact, normal color. Absent: rash ED Course Vital Signs 11/04/20 11/04/20 11/04/20 10:16 10:28 10:30 Temperature 98.9 F Pulse Rate 73 73 73 Respiratory 18 9 L 12 Rate Blood Pressure 148/84 Blood Pressure 137/89 [Right] O2 Sat by Pulse 97 98 96 Oximetry 11/04/20 11/04/20 11/04/20 10:46 11:00 11:16 Temperature Pulse Rate 67 64 66 Respiratory 13 12 11 L Rate Blood Pressure 138/88 133/70 141/73 Blood Pressure [Right] O2 Sat by Pulse 97 98 98 Oximetry 11/04/20 11:30 Temperature Pulse Rate 62 Respiratory Rate Blood Pressure 142/77 Blood Pressure [Right] O2 Sat by Pulse 98 Oximetry ED Medical Decision Making - Lab Data Result diagrams: 11/04/20 10:33 11/04/20 10:33 Vital Signs 11/04/20 11/04/20 11/04/20 10:16 10:28 10:30 Temperature 98.9 F Pulse Rate 73 73 73 Respiratory 18 9 L 12 Rate Blood Pressure 148/84 Blood Pressure 137/89 [Right] O2 Sat by Pulse 97 98 96 Oximetry 11/04/20 11/04/20 11/04/20 10:46 11:00 11:16 Temperature Pulse Rate 67 64 66 Respiratory 13 12 11 L Rate Blood Pressure 138/88 133/70 141/73 Blood Pressure [Right] O2 Sat by Pulse 97 98 98 Oximetry 11/04/20 11:30 Temperature Pulse Rate 62 Respiratory Rate Blood Pressure 142/77 Blood Pressure [Right] O2 Sat by Pulse 98 Oximetry Lab Results 11/04/20 11/04/20 11/04/20 Range/Units 10:33 10:33 Unknown Hgb 14.2 (11.8-15.2) gm/dl Hct 42.8 (35.5-45.6) % Plt Count 323 (140-440) K/mm3 Sodium 140 (137-145) mmol/L Potassium 3.8 (3.6-5.0) mmol/L Chloride 103.8 (98-107) mmol/L Carbon Dioxide 24 (22-30) mmol/L Anion Gap 16 mmol/L BUN 8 L (9-20) mg/dL Creatinine 0.9 (0.8-1.3) mg/dL Estimated GFR > 60 ml/min BUN/Creatinine Ratio 9 % Glucose 90 (75-100) mg/dL Calcium 8.8 (8.4-10.2) mg/dL Magnesium 1.90 (1.7-2.3) mg/dL Total Creatine Kinase 174 H (55-170) units/L Urine Color Yellow (Yellow) Urine Turbidity Slightly-cloudy (Clear) Urine pH 6.0 (5.0-7.0) Ur Specific [place] 1.027 (1.003-1.030) Urine Protein 30 mg/dl (Negative) mg/dL Urine Glucose (UA) Neg (Negative) mg/dL Urine Ketones Neg (Negative) mg/dL Urine Blood Neg (Negative) Urine Nitrite Neg (Negative) Urine Bilirubin Neg (Negative) Urine Urobilinogen 2.0 (<2.0) mg/dL Ur Leukocyte Esterase Tr (Negative) Urine WBC (Auto) 31.0 H (0.0-6.0) /HPF Urine RBC (Auto) 55.0 (0.0-6.0) /HPF U Epithel Cells (Auto) 1.0 (0-13.0) /HPF Urine Mucus Few /HPF - EKG Data -: EKG Interpreted by Ct EKG shows normal: sinus rhythm Rate: normal - EKG Data When compared to previous EKG there are: no significant change Interpretation: unchanged when compared t 11/04/20 12:53 The EKG is interpreted at 10: 35 Sinus rhythm, 72 bpm. Normal axis, normal intervals, left ventricular hypertrophy, poor R wave progression. Minimal motion artifact. Abnormal EKG. Not a STEMI. The EKG today appears to be unchanged when compared to prior EKG from August 25, 2020, although in this previous EKG, there is a small left axis deviation. - Radiology Data Radiology results: pending, report reviewed, image reviewed X-ray the chest is negative for acute findings. - Medical Decision Making Differential diagnosis, including but not limited to: Seizure, breakthrough seizure, pneumonia, pyuria, urinary tract infection Assessment and plan: 54-year-old gentleman with known history of seizure d kade. As per review of prior documentation, Keppra was increased to 2000 mg twice daily, and patient states this was subsequently decreased after following up with his neurology specialist. As per review of prior documentation, he has a cane, a wheelchair walker, home health aide, and a roommate to help him at home. The patient is currently awake and alert, and requesting [employer] transporta tion. He will be given Macrobid for his pyuria. Increase Keppra to 2 g twice daily. Hold Macrobid. Driving precautions. Outpatient follow-up with neurology, and/or primary care. This patient has been observed in this ER for approximately 3 hours without recurrent convulsive event, or clinical deterioration. He was given 2 g of Keppra while here in the ER, given IV fluids, and Macrobid. Have discussed this plan of care with the patient. He is amenable. Questions answered. Return precautions are reviewed. Critical care attestation.: If time is entered above; I have spent that time in minutes in the direct care of this critically ill patient, excluding procedure time. ED Disposition Clinical Impression: Seizure, Pyuria Disposition: DC-01 TO HOME OR SELFCARE Is pt being admited?: No Does the pt Need Aspirin: No Condition: Good Instructions: Seizure, Adult, [id number], Urinary Tract Infection, Adult Additional Instructions: Recommend the patient not drive or operate motor vehicles for the next 6 months, or until cleared to do so by a primary care doctor or neurologist. Avoid consumption of alcohol, and sedating substances. Take antibiotics as directed for presumed urinary tract infection, and increase Keppra to 2 g twice daily. Please have a primary care doctor or neurologist follow-up laboratory studies and cultures (which were sent in the emergency room), within the next 3 to 5 days. Your outpatient physicians may need to contact medical records department to follow-up on nonemergent incidental abnormal findings, and culture results. Recommend follow-up with a primary care doctor or neurologist within the next 3 to 5 days for a repeat checkup and evaluation. Please return to the emergency room right away with new pain, worsened pain, migration of pain, projectile vomiting, change in mental status, confusion, inability to tolerate liquid feeds, recurrent seizures, or any new, worsened or different symptoms not present on the initial emergency room evaluation. Referrals: RENARD RIVERS MD [Referring] - 3-5 Days
[2020-11-04 10:42] LABS: Hematocrit 42.8 % (35.5-45.6); Hemoglobin 14.2 gm/dl (11.8-15.2)
--- NOTE | 2020-11-04 10:54 | XRay Report ---
CHEST 1 VIEW 11/04/2020 9:49 AM INDICATION / CLINICAL INFORMATION: breakthrough seizure. COMPARISON: 08/25/2020 FINDINGS: SUPPORT DEVICES: None. HEART / MEDIASTINUM: No significant abnormality. LUNGS / PLEURA: No significant pulmonary or pleural abnormality. No pneumothorax. ADDITIONAL FINDINGS: No significant additional findings. IMPRESSION: 1. No acute findings. Signer Name: Karan Esparza MD Signed: 11/04/2020 10:50 AM Workstation Name: [id number]
[2020-11-04 11:50] LABS: BUN/Creatinine Ratio 9; Blood Urea Nitrogen 8 mg/dL (9-20); Calcium 8.8 mg/dL (8.4-10.2); Hemolysis Index 12
[2020-11-04 11:54] LABS: Bilirubin,Urine NEG (Negative); Blood,Urine NEG (Negative); Color,Urine Yellow (Yellow); Mucus,Urine FEW /HPF
[2020-11-04] MEDS ORDERED: NITROFURANTOIN MONOHYD/M-CRYST 100 MG CAP PO ONE (12:48)
[2020-11-04 18:28] VITALS: BP 143/85
--- NOTE | 2020-11-05 10:51 | Electrocardiograph Report ---
[facility] Test Date: 2020-11-04 Test Time: 10:35:47 Pat Name: GALE RAY Department: Room: Gender: M Pulmonary Specialist: : 1965 Requested By: LATOYA MCQUEEN Order Number: [id number] Reading MD: Ricco Santacruz Measurements Intervals [place] Rate: 72 P: 14 [place]: 175 QRS: 19 QRSD: 92 T: 42 QT: 397 QTc: 434 Interpretive Statements Sinus rhythm Compared to ECG 08/25/2020 13:55:48 No significant changes Electronically Signed On 11-05-2020 10:51:28 EDT by Ricco Santacruz
== END 2020-11-04 18:28 | disposition home or self-care (01) ==
LOC: ED 09:56
DX: G40.909 Epilepsy, unspecified, not intractable, without status epilepticus (principal); R82.81 Pyuria; M19.90 Unspecified osteoarthritis, unspecified site; Z98.890 Other specified postprocedural states
CPT/HCPCS: 36415; 71045; 80048; 81001; 82550; 83735; 85014; 85018; 85049; 87086; 93005; 96365; 96366; 99284; J1953; J7120; 96361

== ENCOUNTER 2020-11-07 04:52 | Observation (INO) | payer MEDICARE ==
[2020-11-07] MEDS ORDERED: levETIRAcetam 1000 MG/NS 0.75% 1,000 MG/100 ML BAG IV ONE ×2 (05:24→07:14)
--- NOTE | 2020-11-07 05:56 | Cat Scan Report ---
CT HEAD WITHOUT CONTRAST INDICATION / CLINICAL INFORMATION: Status Epilepticus. TECHNIQUE: All CT scans at this location are performed using CT dose reduction for ALARA by means of automated exposure control. COMPARISON: 02/07/2020 FINDINGS: BRAIN PARENCHYMA: Extensive right frontotemporal cranioplasty with underlying encephalomalacia involv ing the right cerebral hemisphere, unchanged. No evidence of recent infarct. No mass effect or midlin e shift. VENTRICULAR SYSTEM/EXTRA-AXIAL SPACES: Expected dilatation of the right lateral ventricle is unchange d. No new or increasing hydrocephalus. No extra-axial fluid collection. ORBITS: Normal as visualized. SKELETAL SYSTEM/SOFT TISSUES: Normal bones and soft tissues. PARANASAL SINUSES/MASTOID AIR CELLS: No significant abnormality. ADDITIONAL FINDINGS: None. IMPRESSION: 1. No acute intracranial abnormality. 2. Stable chronic findings, as above. Signer Name: Antonio Patel MD Signed: 11/07/2020 5:51 AM Workstation Name: [id number]
[2020-11-07 06:12] LABS: Basophils % (Auto) 0.6 % (0.0-1.8); Eosinophils # (Auto) 0.2 K/mm3 (0.0-0.4); Eosinophils % (Auto) 4.2 % (0.0-4.3); Hematocrit 40.4 % (35.5-45.6); Hemoglobin 13.5 gm/dl (11.8-15.2); Lymphocytes # (Auto) 1.2 K/mm3 (1.2-5.4); Lymphocytes % (Auto) 23.4 % (13.4-35.0); Mean Corpuscular HGB Conc 33 % (32-34); Mean Corpuscular Volume 97 fl (84-94); Monocytes # (Auto) 0.4 K/mm3 (0.0-0.8); Monocytes % (Auto) 8.5 % (0.0-7.3); Platelet Count 316 K/mm3 (140-440); Red Blood Count 4.18 M/mm3 (3.65-5.03); Red Cell Distribution Width 15.5 % (13.2-15.2)
[2020-11-07 06:26] LABS: Alanine Aminotransferase 20 units/L (7-56); Albumin 4.4 g/dL (3.9-5); BUN/Creatinine Ratio 10; Blood Urea Nitrogen 11 mg/dL (9-20); Calcium 9.2 mg/dL (8.4-10.2); Hemolysis Index 6
--- NOTE | 2020-11-07 07:04 | Emergency Department Report ---
ED General Adult HPI - General Chief complaint: Seizure Stated complaint: SZ PUI?: No Time Seen by Provider: 11/07/20 06:11 Source: patient, EMS ( EMS documentation not available at time of chart dictation ), RN notes reviewed, old records reviewed Mode of arrival: Stretcher Limitations: Physical Limitation - History of Present Illness Initial comments: The patient is a 54-year-old gentleman. I saw this patient in the ER a few days ago for breakthrough seizure. At that time he had a thorough medical work-up. He was found to have pyuria, and started on Macrobid. His urine cultures have subsequently been negative. The patient tells me he has been taking Keppra 2 g twice daily. He also reports taking Lamictal, 200 mg twice daily. He also takes baclofen, meloxicam, and a "thyroid medicine." He does not recall the name of his thyroid medication. The patient had a breakthrough seizure today. It was terminated with intranasal Ativan. The patient currently denies headache, chest pain, abdominal pain, shortness of breath. He did not fall or hit his head. He has paracervical neck pain. He has chronic weakness and hemiparesis from a prior stroke. The patient states that he feels like he is back to his baseline. He has not been able to follow-up with his outpatient neurologist. -: Sudden Severity scale (0 -10): 0 Consistency: now resolved Improves with: medication Worsens with: none Associated Symptoms: denies other symptoms - Related Data Home Medications Medication Instructions Recorded Confirmed Last Taken Levothyroxine [Synthroid] 1 tab PO QAM 11/07/20 11/07/20 11/07/20 06:00 clonazePAM [Klonopin] 1 mg PO QPM 11/07/20 11/07/20 11/07/20 06:00 lamoTRIgine [LaMICtal] 2 tab PO BID 11/07/20 11/07/20 11/07/20 06:00 Previous Rx's Medication Instructions Recorded Last Taken Type levETIRAcetam [Keppra TAB] 1,000 mg PO BID #60 tab 08/25/20 Unknown Rx levETIRAcetam [Keppra TAB] 2,000 mg PO BID 30 Days #60 tab 11/04/20 11/07/20 06:00 Rx Lacosamide [Vimpat] 100 mg PO Q12HR #60 tablet 11/07/20 Unknown Rx lamoTRIgine [LaMICtal] 200 mg PO BID #60 tab 11/07/20 Unknown Rx Allergies Allergy/AdvReac Type Severity Reaction Status Date / Time No Known Allergies Allergy Verified 08/25/20 12:22 ED Review of Systems ROS: Stated complaint: SZ Other details as noted in HPI Constitutional: denies: fever Eyes: denies: eye discharge ENT: denies: epistaxis Respiratory: denies: cough Cardiovascular: denies: chest pain Gastrointestinal: denies: abdominal pain Genitourinary: denies: dysuria Musculoskeletal: myalgia Neurological: weakness (Chronic weakness, denies new/different weakness) ED Past Medical Hx - Past Medical History Hx CVA: Yes (left side weakness) Hx Arthritis: Yes Hx Seizures: Yes Additional medical history: Fracture neck, TBI - Surgical History Additional Surgical History: brain - Social History Smoking Status: Unknown if ever smoked - Medications Home Medications: Home Medications Medication Instructions Recorded Confirmed Last Taken Type levETIRAcetam [Keppra TAB] 1,000 mg PO BID #60 tab 08/25/20 Unknown Rx levETIRAcetam [Keppra TAB] 2,000 mg PO BID 30 Days #60 tab 11/04/20 11/07/20 11/07/20 06:00 Rx Lacosamide [Vimpat] 100 mg PO Q12HR #60 tablet 11/07/20 Unknown Rx Levothyroxine [Synthroid] 1 tab PO QAM 11/07/20 11/07/20 11/07/20 06:00 History clonazePAM [Klonopin] 1 mg PO QPM 11/07/20 11/07/20 11/07/20 06:00 History lamoTRIgine [LaMICtal] 2 tab PO BID 11/07/20 11/07/20 11/07/20 06:00 History lamoTRIgine [LaMICtal] 200 mg PO BID #60 tab 11/07/20 Unknown Rx ED Physical Exam - General Limitations: Physical Limitation General appearance: alert, in no apparent distress - Head Head exam: Present: atraumatic, normocephalic - Eye Eye exam: Present: normal appearance, PERRL, EOMI, other (Visual acuity intact to finger counting, color perception, reading at a close distance). Absent: nystagmus - ENT ENT exam: Present: normal exam, normal orophraynx, mucous membranes moist, normal external ear exam - Neck Neck exam: Present: normal inspection, full ROM. Absent: tenderness, meningismus - Respiratory Respiratory exam: Present: normal lung sounds bilaterally. Absent: respiratory distress, wheezes, rales, rhonchi, stridor, decreased breath sounds - Cardiovascular Cardiovascular Exam: Present: regular rate, normal rhythm, normal heart sounds. Absent: bradycardia, tachycardia, irregular rhythm, systolic murmur, diastolic murmur, rubs, gallop - GI/Abdominal GI/Abdominal exam: Present: soft. Absent: distended, tenderness, guarding, rebound, rigid, pulsatile mass - Rectal Rectal exam: Present: deferred - Extremities Exam Extremities exam: Present: pedal edema (Chronic venous stasis changes noted in the bilateral lower extremities). Absent: normal inspection (There is a contracture noted in the left upper extremity) - Back Exam Back exam: Present: normal inspection. Absent: tenderness, CVA tenderness (R), CVA tenderness (L), paraspinal tenderness, vertebral tenderness - Neurological Exam Neurological exam: Present: alert, oriented X3, motor sensory deficit (Hemiparesis of left arm. Minimal movement in the left arm and left leg. Patient able to partially move right arm and right leg. Sensation is intact to light touch in 4 extremities. Motor examination unchanged from a few days ago.), other (There is no facial droop. The tongue is midline. The extraoculars are intact bilaterally. Hearing is grossly intact bilaterally.) - Psychiatric Psychiatric exam: Present: normal affect, normal mood - Skin Skin exam: Present: warm, dry, intact, normal color. Absent: rash ED Course Vital Signs 11/07/20 11/07/20 11/07/20 04:58 05:00 05:05 Temperature 97.7 F Pulse Rate 95 H 88 90 Respiratory 14 17 14 Rate Blood Pressure 140/85 140/85 O2 Sat by Pulse 97 96 97 Oximetry 11/07/20 11/07/20 11/07/20 05:16 05:30 05:46 Temperature Pulse Rate 79 77 71 Respiratory 13 13 11 L Rate Blood Pressure 140/85 123/84 123/84 O2 Sat by Pulse 97 98 96 Oximetry 11/07/20 11/07/20 11/07/20 06:00 06:16 06:30 Temperature Pulse Rate 74 66 69 Respiratory 14 12 11 L Rate Blood Pressure 122/82 123/84 114/78 O2 Sat by Pulse 96 99 99 Oximetry 11/07/20 11/07/20 11/07/20 06:46 07:00 07:16 Temperature Pulse Rate 65 67 74 Respiratory 10 L 18 11 L Rate Blood Pressure 122/82 115/76 114/78 O2 Sat by Pulse 100 99 98 Oximetry 11/07/20 11/07/20 11/07/20 07:30 07:46 08:00 Temperature Pulse Rate 69 69 68 Respiratory 11 L 12 10 L Rate Blood Pressure 123/80 123/80 124/78 O2 Sat by Pulse 100 Oximetry 11/07/20 11/07/20 11/07/20 08:16 08:30 08:46 Temperature Pulse Rate 68 70 67 Respiratory 12 13 12 Rate Blood Pressure 124/78 127/80 127/80 O2 Sat by Pulse 99 99 99 Oximetry 11/07/20 11/07/20 11/07/20 09:00 09:16 09:30 Temperature Pulse Rate 71 71 74 Respiratory 18 12 15 Rate Blood Pressure 138/85 138/85 136/85 O2 Sat by Pulse 100 99 98 Oximetry 11/07/20 11/07/20 11/07/20 09:46 10:00 10:16 Temperature Pulse Rate 76 76 69 Respiratory 9 L 13 12 Rate Blood Pressure 136/85 135/84 135/84 O2 Sat by Pulse 98 99 98 Oximetry 11/07/20 11/07/20 11/07/20 10:30 10:46 11:00 Temperature Pulse Rate 74 75 100 H Respiratory 14 13 20 Rate Blood Pressure 133/87 133/87 158/77 O2 Sat by Pulse 98 Oximetry 11/07/20 11/07/20 11/07/20 11:16 11:30 11:46 Temperature Pulse Rate 78 75 75 Respiratory 19 17 14 Rate Blood Pressure 133/87 138/85 138/85 O2 Sat by Pulse Oximetry 11/07/20 11/07/20 11/07/20 12:00 12:16 12:30 Temperature Pulse Rate 74 81 70 Respiratory 12 20 16 Rate Blood Pressure 136/86 136/86 130/79 O2 Sat by Pulse Oximetry 11/07/20 11/07/20 11/07/20 12:46 13:00 13:16 Temperature Pulse Rate 76 70 75 Respiratory 17 14 17 Rate Blood Pressure 130/79 130/83 130/83 O2 Sat by Pulse 76 L Oximetry 11/07/20 11/07/20 11/07/20 13:30 13:46 14:00 Temperature Pulse Rate 76 74 93 H Respiratory 17 18 14 Rate Blood Pressure 138/84 138/84 144/88 O2 Sat by Pulse Oximetry 11/07/20 11/07/20 11/07/20 14:16 14:30 14:46 Temperature Pulse Rate 71 69 73 Respiratory 13 18 16 Rate Blood Pressure 144/88 143/84 143/84 O2 Sat by Pulse Oximetry 11/07/20 11/07/20 11/07/20 15:00 15:16 15:30 Temperature Pulse Rate 76 72 71 Respiratory 16 14 12 Rate Blood Pressure 141/84 141/84 131/89 O2 Sat by Pulse Oximetry - Reevaluation(s) Reevaluation #1: 11/07/20 08:25 Differential diagnosis, including but not limited to: Seizure, breakthrough seizure Assessment and plan: 54-year-old gentleman with breakthrough seizure. He is afebrile with reassuring vital signs. He is back to his neurologic baseline. CT scan obtained prior to my personal evaluation of this patient. It is unremarkable. Laboratory studies reviewed and are unremarkable. Recent urine culture negative for organism. Lung sounds are clear, recent chest x-ray unremarkable, patient denies respiratory complaints, saturating at 97%. Have contacted neurology on-call, Dr. Shivam Garcia. Have discussed the patient's history, physical, laboratory studies, imaging studies, and current home medications. I specifically asked if the patient should have his medicati ons uptitrated, or have a third line agent initiated. Dr. Garcia advises to initiate lacosamide, 100 mg twice daily. Patient may discontinue Macrobid, given negative cultures. Patient has been observed in this ER for hours without clinical decompensation. He was given acetaminophen for his soft tissue neck pain, and loaded with 2 g of Keppra. He was also given lacosamide orally. Have requested that nursing team reconcile home medications, to make certain that the patient is not on any medications at this time which would decrease the seizure threshold. 11/07/20 08:48 Home medications include baclofen, Synthroid, clonazepam, Keppra, and Lamictal. Baclofen may decrease seizure threshold. Discontinue baclofen. Patient awake, alert, oriented, in no acute distress, vital signs stable. 11/07/20 11:08 Change in plans. Patient had another right-sided lateralizing convulsive event. This resolved on its own. We will therefore admit this patient to the medical service for supportive care. Hospital physician, Dr. Angela Tineo to admit to IMS Have requested [id number] neurology consultation. Charge nurse Kajal is informed. 11/07/20 16:26 Neurology recommendations reviewed and appreciated. Patient resting comfortably and talking on his cell phone. ED Medical Decision Making - Lab Data Result diagrams: 11/07/20 05:46 11/07/20 05:46 Vital Signs 11/07/20 05:05 Temperature 97.7 F Pulse Rate 90 Respiratory 14 Rate Blood Pressure 140/85 O2 Sat by Pulse 97 Oximetry Lab Results 11/07/20 11/07/20 11/07/20 Range/Units 05:46 05:46 07:17 WBC 5.1 (4.5-11.0) K/mm3 RBC 4.18 (3.65-5.03) M/mm3 Hgb 13.5 (11.8-15.2) gm/dl Hct 40.4 (35.5-45.6) % MCV 97 H (84-94) fl MCH 32 (28-32) pg MCHC 33 (32-34) % RDW 15.5 H (13.2-15.2) % Plt Count 316 (140-440) K/mm3 Lymph % (Auto) 23.4 (13.4-35.0) % [place] % (Auto) 8.5 H (0.0-7.3) % Eos % (Auto) 4.2 (0.0-4.3) % Baso % (Auto) 0.6 (0.0-1.8) % Lymph # (Auto) 1.2 (1.2-5.4) K/mm3 [place] # (Auto) 0.4 (0.0-0.8) K/mm3 Eos # (Auto) 0.2 (0.0-0.4) K/mm3 Baso # (Auto) 0.0 (0.0-0.1) K/mm3 Seg Neutrophils % 63.3 (40.0-70.0) % Seg Neutrophils # 3.2 (1.8-7.7) K/mm3 Sodium 145 (137-145) mmol/L Potassium 4.0 (3.6-5.0) mmol/L Chloride 106.7 (98-107) mmol/L Carbon Dioxide 31 H D (22-30) mmol/L Anion Gap 11 mmol/L BUN 11 (9-20) mg/dL Creatinine 1.1 (0.8-1.3) mg/dL Estimated GFR > 60 ml/min BUN/Creatinine Ratio 10 % Glucose 90 (75-100) mg/dL Calcium 9.2 (8.4-10.2) mg/dL Magnesium 2.20 (1.7-2.3) mg/dL Total Bilirubin 0.20 (0.1-1.2) mg/dL AST 17 (5-40) units/L ALT 20 (7-56) units/L Alkaline Phosphatase 115 (35-129) units/L Total Creatine Kinase 201 H (55-170) units/L Total Protein 6.5 (6.3-8.2) g/dL Albumin 4.4 (3.9-5) g/dL Albumin/Globulin Ratio 2.1 % Vital Signs 11/07/20 11/07/20 11/07/20 04:58 05:00 05:05 Temperature 97.7 F Pulse Rate 95 H 88 90 Respiratory 14 17 14 Rate Blood Pressure 140/85 140/85 O2 Sat by Pulse 97 96 97 Oximetry 11/07/20 11/07/20 11/07/20 05:16 05:30 05:46 Temperature Pulse Rate 79 77 71 Respiratory 13 13 11 L Rate Blood Pressure 140/85 123/84 123/84 O2 Sat by Pulse 97 98 96 Oximetry 11/07/20 11/07/20 11/07/20 06:00 06:16 06:30 Temperature Pulse Rate 74 66 69 Respiratory 14 12 11 L Rate Blood Pressure 122/82 123/84 114/78 O2 Sat by Pulse 96 99 99 Oximetry 11/07/20 11/07/20 11/07/20 06:46 07:00 07:16 Temperature Pulse Rate 65 67 74 Respiratory 10 L 18 11 L Rate Blood Pressure 122/82 115/76 114/78 O2 Sat by Pulse 100 99 98 Oximetry 11/07/20 11/07/2011/07/21 07:30 07:46 08:00 Temperature Pulse Rate 69 69 68 Respiratory 11 L 12 10 L Rate Blood Pressure 123/80 123/80 124/78 O2 Sat by Pulse 100 Oximetry 11/07/20 11/07/20 11/07/20 08:16 08:30 08:46 Temperature Pulse Rate 68 70 67 Respiratory 12 13 12 Rate Blood Pressure 124/78 127/80 127/80 O2 Sat by Pulse 99 99 99 Oximetry - EKG Data -: EKG Interpreted by Tx EKG shows normal: sinus rhythm Rate: normal - EKG Data 11/07/20 08:22 EKG today is interpreted at 07: 24 Sinus rhythm, rate 71 bpm. Borderline leftward axis deviation, QTC 436 ms, MN interval 167 ms, high left ventricular voltage/left ventricular hypertrophy. This is an abnormal EKG. This is not a STEMI. The EKG appears to be unchanged when compared to prior EKG, with the exception of minimally negatively deflected QRS complex in aVF. - Radiology Data Radiology results: pending, report reviewed, image reviewed [place] [id number] Cat Scan Report Signed Patient: GALE RAY MR#: [id number] : 1965 Acct:[id number] Age/Sex: 54 / M ADM Date: 11/07/20 Loc: ED Attending Dr: Ordering Physician: DORETHA AUSTIN III, MD Date of Service: 11/07/20 Procedure(s): CT head/brain wo con Accession Number(s): [id number] cc: DORETHA AUSTIN III, MD CT HEAD WITHOUT CONTRAST INDICATION / CLINICAL INFORMATION: Status Epilepticus. TECHNIQUE: All CT scans at this location are performed using CT dose reduction for ALARA by means of automated exposure control. COMPARISON: 02/07/2020 FINDINGS: BRAIN PARENCHYMA: Extensive right frontotemporal cranioplasty with underlying encephalomalacia involving the right cerebral hemisphere, unchanged. No evidence of recent infarct. No mass effect or midline shift. VENTRICULAR SYSTEM/EXTRA-AXIAL SPACES: Expected dilatation of the right lateral ventricle is unchanged. No new or increasing hydrocephalus. No extra-axial fluid collection. ORBITS: Normal as visualized. SKELETAL S YSTEM/SOFT TISSUES: Normal bones and soft tissues. PARANASAL SINUSES/MASTOID AIR CELLS: No significant abnormality. ADDITIONAL FINDINGS: None. IMPRESSION: 1. No acute intracranial abnormality. 2. Stable chronic findings, as above. Signer Name: Myriam Patel MD Signed: 11/07/2020 5:51 AM Workstation Name: [id number] Transcribed By: MANJU Dictated By: MYRIAM PATEL MD Electronically Authenticated By: MYRIAM PATEL MD Signed Date/Time: 11/07/20550 DD/ 9 Critical care attestation.: If time is entered above; I have spent that time in minutes in the direct care of this critically ill patient, excluding procedure time. ED Disposition Clinical Impression: Seizure Disposition: DC-09 OP ADMIT IP TO THIS HOSP Is pt being admited?: Yes Does the pt Need Aspirin: No Condition: Good
[2020-11-07] MEDS ORDERED: lamoTRIgine 100 MG TAB PO STA (07:14)
[2020-11-07] MEDS ORDERED: LACOSAMIDE 100 MG TAB PO ONE (09:00)
[2020-11-07] MEDS ORDERED: LORazepam 2 MG/ML VIAL IV STA (11:00)
--- NOTE | 2020-11-07 13:28 | Consultation ---
History of Present Illness - Reason for Consult Consult date: 11/07/20 - History of Present Illness [facility] Consult Note # Demographics Consult Type: General Neurology Patient Location: Emergency Room First Name: Raghavendra Last Name: Claude Date of : 1965 Age: 54 Gender: Male Time of Initial Page ( Time): 11/07/2020, 11:12 Time of Return Call ( Time): 11/07/2020, 11:12 # HPI History: 54yo man who had recurrent breakthrough seizures. He states that his roommate noted seizure, but he does not recall what time, possibly 6 or 7am today. He states that when he gets hot, he will have more of a chance of having seizure. He states that he had seizures since 2007 after a stroke. He is on keppra and lamictal. He has had Keppra increased to 2000mg BID 3 days ago. He presents with seizure to the ED. He was set to be discharged on new vimpat dosing in addition to his keppra and lamictal. Baclofen was discontinued. During a typical seizure, he will be awake and have left sided shaking. # Scores Time of exam and NIHSS ( Time): 11/07/2020, 12:35 Level of Consciousness 1a: [0] = Alert; keenly responsive LOC Questions 1b: [0] = Answers both questions correctly LOC Commands 1c: [0] = Performs both tasks correctly Best Gaze 2: [0] = Normal Visual 3: [0] = No visual loss Facial Palsy 4: [0] = Normal symmetrical movements Motor Arm Left 5a: [3] = No effort against gravity Motor Arm Right 5b: [0] = No drift Motor Leg Left 6a: [0] = No drift Motor Leg Right 6b: [0] = No drift Limb Ataxia 7: [0] = Absent Sensory 8: [0] = Normal Best Language 9: [0] = No aphasia Dysarthria 10: [0] = Normal Extinction and Inattention 11: [0] = No abnormality NIHSS Total: 3 # Exam Motor: spasticity of the left arm more than leg. # PMH-[id number] Past Medical History: seizure stroke residual left sided weakness Past Surgical History: craniotomy on right side # Assessment Impression: Seizure breakthrough events # Plan Labs: liver function tests urine drug screen Diagnostic Test: EEG Medication: continue keppra and lamictal at current dose. Other: seizure precautions I have discussed my recommendations with the referring provider Additional Recommendations: -continue Vimpat at 50mg bid Medications and Allergies Allergies Allergy/AdvReac Type Severity Reaction Status Date / Time No Known Allergies Allergy Verified 08/25/20 12:22 Home Medications Medication Instructions Recorded Confirmed Last Taken Type levETIRAcetam [Keppra TAB] 1,000 mg PO BID #60 tab 08/25/20 Unknown Rx levETIRAcetam [Keppra TAB] 2,000 mg PO BID 30 Days #60 tab 11/04/20 11/07/20 11/07/20 06:00 Rx Lacosamide [Vimpat] 100 mg PO Q12HR #60 tablet 11/07/20 Unknown Rx Levothyroxine [Synthroid] 1 tab PO QAM 11/07/20 11/07/20 11/07/20 06:00 History clonazePAM [Klonopin] 1 mg PO QPM 11/07/20 11/07/20 11/07/20 06:00 History lamoTRIgine [LaMICtal] 2 tab PO BID 11/07/20 11/07/20 11/07/20 06:00 History lamoTRIgine [LaMICtal] 200 mg PO BID #60 tab 11/07/20 Unknown Rx Exam - Constitutional Vitals: Temp Pulse Resp BP Pulse Ox 97.7 F 75 17 138/85 98 11/07/20 05:05 11/07/20 11:30 11/07/20 11:30 11/07/20 11:30 11/07/20 10:46 Results - Labs CBC & Chem 7: 11/07/20 05:46 11/07/20 05:46 Labs: Abnormal lab results 11/07/20 11/07/20 11/07/20 Range/Units 05:46 05:46 07:17 MCV 97 H (84-94) fl RDW 15.5 H (13.2-15.2) % [place] % (Auto) 8.5 H (0.0-7.3) % Carbon Dioxide 31 H D (22-30) mmol/L Total Creatine Kinase 201 H (55-170) units/L
[2020-11-07] MEDS ORDERED: ACETAMINOPHEN 325 MG TAB PO PRN (22:07)
[2020-11-07] MEDS ORDERED: HYDROmorphone 1 MG/1 ML INJ IV PRN (22:07)
[2020-11-07] MEDS ORDERED: oxyCODONE /ACETAMINOPHEN 5-325MG TAB PO PRN (22:07)
[2020-11-07] MEDS ORDERED: METOCLOPRAMIDE 10 MG/2 ML INJ IV PRN (22:07)
[2020-11-07] MEDS ORDERED: ONDANSETRON 4 MG/2 ML INJ IV PRN (22:07)
[2020-11-07] MEDS ORDERED: NON-FORMULARY EACH (Lamotrigine [Lamictal] 200 MG Tablet) PO SCH (22:15)
[2020-11-07] MEDS ORDERED: NON-FORMULARY EACH (Levetiracetam [Keppra Tab] 1,000 MG Tablet) PO SCH (22:15)
[2020-11-07] MEDS ORDERED: SODIUM CHLORIDE 0.9% 1000 ML 1,000 ML IV SCH (22:15)
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
[2020-11-07] MEDS ORDERED: HEPARIN 5,000 UNIT/1 ML VIAL SUB-Q SCH (22:30)
[2020-11-07] MEDS: HEPARIN 5,000 UNIT/1 ML VIAL SUB-Q SCH (23:16)
[2020-11-07] MEDS: levETIRAcetam 500 MG TAB PO SCH (23:17)
[2020-11-07] MEDS: FAMOTIDINE 20 MG TAB PO SCH (23:17)
[2020-11-07] MEDS: LACOSAMIDE 200 MG in SODIUM CHLORIDE 0.9% 100 ML IV SCH (23:18)
--- NOTE | 2020-11-08 00:13 | Consultation ---
History of Present Illness History of present illness: [facility] Consult Note # Demographics Consult Type: General Neurology Patient Location: Emergency Room First Name: Raghavendra Last Name: Claude Date of : 1965 Age: 54 Gender: Male Time of Initial Page (Eastern Time): 11/07/2020, 07:50 Time of Return Call ( Time): 11/07/2020, 07:51 Phone Only Consult: 54M with epilepsy on levetiracetam 2g BID and lamictal 200mg BID. Recently found to have pyuria and given macrobid; urine culture negative. Had another breakthrough seizure today, which stopped after intranasal lorazepam. Back at his neurologic baseline. Has not seen his outpatient neurologist since recent breakthrough seizures a few days prior. Discussed that with multiple breakthrough seizures on two medications likely at max dosage, would start a 3rd agent, and recommended lacosamide 100mg BID. # Logistics Telemedicine: phone only Electronically signed at 11/08/2020 00:11 ( Time) by Shivam Garcia MD Medications and Allergies Allergies Allergy/AdvReac Type Severity Reaction Status Date / Time No Known Allergies Allergy Verified 08/25/20 12:22 Home Medications Medication Instructions Recorded Confirmed Last Taken Type levETIRAcetam [Keppra TAB] 1,000 mg PO BID #60 tab 08/25/20 Unknown Rx levETIRAcetam [Keppra TAB] 2,000 mg PO BID 30 Days #60 tab 11/04/20 11/07/20 11/07/20 06:00 Rx Lacosamide [Vimpat] 100 mg PO Q12HR #60 tablet 11/07/20 Unknown Rx Levothyroxine [Synthroid] 1 tab PO QAM 11/07/20 11/07/20 11/07/20 06:00 History clonazePAM [Klonopin] 1 mg PO QPM 11/07/20 11/07/20 11/07/20 06:00 History lamoTRIgine [LaMICtal] 2 tab PO BID 11/07/20 11/07/20 11/07/20 06:00 History lamoTRIgine [LaMICtal] 200 mg PO BID #60 tab 11/07/20 Unknown Rx Active Meds: Active Medications Acetaminophen (Acetaminophen 325 Mg Tab) 650 mg PO Q4H PRN PRN Reason: Pain MILD(1-3)/Fever >100.5/REILLY Clonazepam (Clonazepam 0.5 Mg Tab) 1 mg PO QPM [facility] Famotidine (Famotidine 20 Mg Tab) 20 mg PO BID [facility] Last Admin: 11/07/20 23:17 Dose: 20 mg Documented by: Heparin Sodium (Porcine) (Heparin 5,000 Unit/1 Ml Vial) 5,000 unit SUB-Q Q12HR [facility] Last Admin: 11/07/20 23:16 Dose: 5,000 unit Documented by: Hydromorphone HCl (Hydromorphone 1 Mg/1 Ml Inj) 0.5 mg IV Q3H PRN PRN Reason: Pain , Severe (7-10) Sodium Chloride (Nacl 0.9% 1000 Ml) 1,000 mls @ 100 mls/hr IV DIRECT [facility] Last Admin: 11/07/20 23:18 Dose: 100 mls/hr Documented by: Lacosamide 200 mg/ Sodium (Chloride) 120 mls @ 100 mls/hr IV Q12H [facility] Last Admin: 11/07/20 23:18 Dose: 100 mls/hr Documented by: Levetiracetam (Levetiracetam 500 Mg Tab) 2,000 mg PO BID [facility] Last Admin: 11/07/20 23:17 Dose: 2,000 mg Documented by: Levothyroxine Sodium (Levothyroxine 50 Mcg Tab) 50 mcg PO QAM@0600 [facility] Metoclopramide HCl (Metoclopramide 10 Mg/2 Ml Inj) 10 mg IV Q6H PRN PRN Reason: Nausea And Vomiting Miscellaneous Medication (Lamotrigine [Lamictal]) 2 tab PO BID [facility] Ondansetron HCl (Ondansetron 4 Mg/2 Ml Inj) 4 mg IV Q3H PRN PRN Reason: Nausea And Vomiting Oxycodone/Acetaminophen (Oxycodone /Acetaminophen 5-325mg Tab) 1 tab PO Q6H PRN PRN Reason: Pain, Moderate (4-6) Sodium Chloride (Sodium Chloride 0.9% 10 Ml Flush Syringe) 10 ml IV BID [facility] Sodium Chloride (Sodium Chloride 0.9% 10 Ml Flush Syringe) 10 ml IV PRN PRN PRN Reason: LINE FLUSH Physical Examination - Vital Signs Vital Signs: Vital Signs Pulse Resp Pulse Ox 95 H 14 97 11/07/20 04:58 11/07/20 04:58 11/07/20 04:58 Results - Laboratory Findings CBC and BMP: 11/07/20 05:46 11/07/20 05:46 Abnormal Lab Findings: Abnormal Labs 11/07/20 11/07/20 11/07/20 05:46 05:46 07:17 MCV 97 H RDW 15.5 H [place] % (Auto) 8.5 H Carbon Dioxide 31 H D Total Creatine Kinase 201 H
[2020-11-08] MEDS: LEVOTHYROXINE 50 MCG TAB PO SCH (06:16)
[2020-11-08 07:17] LABS: Basophils % (Auto) 0.7 % (0.0-1.8); Eosinophils # (Auto) 0.2 K/mm3 (0.0-0.4); Hematocrit 42.6 % (35.5-45.6); Hemoglobin 14.2 gm/dl (11.8-15.2); Lymphocytes # (Auto) 1.3 K/mm3 (1.2-5.4); Lymphocytes % (Auto) 21.1 % (13.4-35.0); Mean Corpuscular HGB Conc 33 % (32-34); Mean Corpuscular Volume 96 fl (84-94); Monocytes # (Auto) 0.4 K/mm3 (0.0-0.8); Monocytes % (Auto) 6.5 % (0.0-7.3); Platelet Count 393 K/mm3 (140-440); Red Blood Count 4.44 M/mm3 (3.65-5.03); Red Cell Distribution Width 15.6 % (13.2-15.2)
[2020-11-08 07:35] LABS: Alanine Aminotransferase 18 units/L (7-56); Albumin 4.5 g/dL (3.9-5); BUN/Creatinine Ratio 11; Blood Urea Nitrogen 9 mg/dL (9-20); Hemolysis Index 14
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
--- NOTE | 2020-11-08 10:02 | Progress Note ---
Assessment and Plan Assessment and plan: --Breakthrough seizures; No new seizures since admission Seizure precautions, antiepileptics AV IV Ativan as needed -History of seizure disorder Current Visit: Yes Status: Acute Not in status epilepticus not in postictal state Keppra and Vimpat resumed0 patient counseled about compliance CT head; no acute abnormalities, chronic changes. Neurology: Evaluation noted and appreciated Recommend Keppra level, EEG, and monitoring -- Hypothyroidism Current Visit: Yes Status: Chronic Continue Synthroid check TSH level -- CVA (cerebrovascular accident) Current Visit: Yes Status: Chronic With left-sided weakness supportive care --DVT prophylaxis Current Visit: Yes Status: Acute On heparin and GI prophylaxis --Discharge planning issues Current Visit: Yes Status: Acute Patient in observation status Follow neuro evaluation recommendations Neurology recommend EEG, Keppra level close monitoring of the patient Patient may need to stay 2 midnights for further evaluation and management Plan of care reviewed with the patient and his nurse History Interval history: I have seen and examined the patient at the bedside Patient's chart and medications reviewed Patient is admitted with breakthrough seizures No new seizure episodes since admission Vital signs Hospitalist Physical - Constitutional Vitals: Temp Pulse Resp BP Pulse Ox 97.8 F 72 18 138/80 97 11/08/20 07:53 11/08/20 07:53 11/08/20 07:53 11/08/20 07:53 11/08/20 07:53 General appearance: Present: no acute distress, well-nourished - EENT Eyes: Present: PERRL, EOM intact - Neck Neck: Present: supple, normal ROM - Respiratory Respiratory effort: normal Respiratory: bilateral: diminished, negative: rales, rhonchi, wheezing - Cardiovascular Rhythm: regular Heart Sounds: Present: S1 & S2 - Extremities Extremities: no ischemia, No edema - Abdominal General gastrointestinal: soft, non-tender - Integumentary Integumentary: Present: clear, warm - Psychiatric Psychiatric: appropriate mood/affect, cooperative - Neurologic Neurologic: moves all extremities Results - Labs CBC & Chem 7: 11/08/20 07:04 11/08/20 07:04 Labs: Laboratory Last Values WBC 6.3 K/mm3 (4.5-11.0) 11/08/20 07:04 RBC 4.44 M/mm3 (3.65-5.03) 11/08/20 07:04 Hgb 14.2 gm/dl (11.8-15.2) 11/08/20 07:04 Hct 42.6 % (35.5-45.6) 11/08/20 07:04 MCV 96 fl (84-94) H 11/08/20 07:04 MCH 32 pg (28-32) 11/08/20 07:04 MCHC 33 % (32-34) 11/08/20 07:04 RDW 15.6 % (13.2-15.2) H 11/08/20 07:04 Plt Count 393 K/mm3 (140-440) 11/08/20 07:04 Lymph % (Auto) 21.1 % (13.4-35.0) 11/08/20 07:04 [place] % (Auto) 6.5 % (0.0-7.3) 11/08/20 07:04 Eos % (Auto) 3.0 % (0.0-4.3) 11/08/20 07:04 Baso % (Auto) 0.7 % (0.0-1.8) 11/08/20 07:04 Lymph # (Auto) 1.3 K/mm3 (1.2-5.4) 11/08/20 07:04 [place] # (Auto) 0.4 K/mm3 (0.0-0.8) 11/08/20 07:04 Eos # (Auto) 0.2 K/mm3 (0.0-0.4) 11/08/20 07:04 Baso # (Auto) 0.0 K/mm3 (0.0-0.1) 11/08/20 07:04 Seg Neutrophils % 68.7 % (40.0-70.0) 11/08/20 07:04 Seg Neutrophils # 4.3 K/mm3 (1.8-7.7) 11/08/20 07:04 Sodium 141 mmol/L (137-145) 11/08/20 07:04 Potassium 4.4 mmol/L (3.6-5.0) 11/08/20 07:04 Chloride 104.8 mmol/L (98-107) 11/08/20 07:04 Carbon Dioxide 26 mmol/L (22-30) 11/08/20 07:04 Anion Gap 15 mmol/L 11/08/20 07:04 BUN 9 mg/dL (9-20) 11/08/20 07:04 Creatinine 0.8 mg/dL (0.8-1.3) 11/08/20 07:04 Estimated GFR > 60 ml/min 11/08/20 07:04 BUN/Creatinine Ratio 11 % 11/08/20 07:04 Glucose 103 mg/dL (75-100) H 11/08/20 07:04 Hemoglobin A1c 5.4 % (4-6) 11/08/20 07:04 Calcium 9.0 mg/dL (8.4-10.2) 11/08/20 07:04 Magnesium 2.20 mg/dL (1.7-2.3) 11/07/20 07:17 Total Bilirubin 0.40 mg/dL (0.1-1.2) 11/08/20 07:04 AST 14 units/L (5-40) 11/08/20 07:04 ALT 18 units/L (7-56) 11/08/20 07:04 Alkaline Phosphatase 127 units/L (35-129) 11/08/20 07:04 Total Creatine Kinase 201 units/L (55-170) H 11/07/20 07:17 Total Protein 7.5 g/dL (6.3-8.2) 11/08/20 07:04 Albumin 4.5 g/dL (3.9-5) 11/08/20 07:04 Albumin/Globulin Ratio 1.5 % 11/08/20 07:04 [place]/IV: Voiding Method Incontinent Active Medications - Current Medications Current Medications: Generic Name Dose Route Start Last Admin Trade Name Freq PRN Reason Stop Dose Admin Acetaminophen 650 mg 11/07/20 22:07 Acetaminophen 325 Mg Tab PO Q4H PRN Pain MILD(1-3)/Fever >100.5/REILLY Clonazepam 1 mg 11/08/20 18:00 Clonazepam 0.5 Mg Tab PO QPM JOSE Famotidine 20 mg 11/07/20 23:00 11/07/20 23:17 Famotidine 20 Mg Tab PO 20 mg BID JOSE Administration Heparin Sodium (Porcine) 5,000 unit 11/07/20 22:15 11/07/20 23:16 Heparin 5,000 Unit/1 Ml Vial SUB-Q 5,000 unit Q12HR JOSE Administration Hydromorphone HCl 0.5 mg 11/07/20 22:07 Hydromorphone 1 Mg/1 Ml Inj IV Q3H PRN Pain , Severe (7-10) Sodium Chloride 1,000 mls @ 100 mls/hr 11/07/20 22:15 11/07/20 23:18 Nacl 0.9% 1000 Ml IV 100 mls/hr DIRECT JOSE Administration Lacosamide 200 mg/ Sodium 120 mls @ 100 mls/hr 11/07/20 23:00 11/07/20 23:18 Chloride IV 100 mls/hr Q12H JOSE Administration Lamotrigine 200 mg 11/08/20 01:00 Lamotrigine 100 Mg Tab PO BID JOSE Levetiracetam 2,000 mg 11/07/20 22:30 11/07/20 23:17 Levetiracetam 500 Mg Tab PO 2,000 mg BID JOSE Administration Levothyroxine Sodium 50 mcg 11/08/20 06:00 11/08/20 06:16 Levothyroxine 50 Mcg Tab PO 50 mcg QAM@0600 JOSE Administration Metoclopramide HCl 10 mg 11/07/20 22:07 Metoclopramide 10 Mg/2 Ml Inj IV Q6H PRN Nausea And Vomiting Ondansetron HCl 4 mg 11/07/20 22:07 Ondansetron 4 Mg/2 Ml Inj IV Q3H PRN Nausea And Vomiting Oxycodone/Acetaminophen 1 tab 11/07/20 22:07 Oxycodone /Acetaminophen 5-325mg Tab PO Q6H PRN Pain, Moderate (4-6) Sodium Chloride 10 ml 11/08/20 10:00 Sodium Chloride 0.9% 10 Ml Flush Syringe IV BID JOSE Sodium Chloride 10 ml 11/07/20 22:07 Sodium Chloride 0.9% 10 Ml Flush Syringe IV PRN PRN LINE FLUSH
--- NOTE | 2020-11-08 10:10 | Electrocardiograph Report ---
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
[2020-11-08] MEDS: levETIRAcetam 500 MG TAB PO SCH ×2 (10:12→21:34)
[2020-11-08] MEDS: lamoTRIgine 100 MG TAB PO SCH ×2 (10:12→21:35)
[2020-11-08] MEDS: HEPARIN 5,000 UNIT/1 ML VIAL SUB-Q SCH ×2 (10:13→21:35)
[2020-11-08] MEDS: FAMOTIDINE 20 MG TAB PO SCH ×2 (10:13→21:34)
[2020-11-08] MEDS: LACOSAMIDE 200 MG in SODIUM CHLORIDE 0.9% 100 ML IV SCH ×2 (11:59→22:05)
[2020-11-08] MEDS ORDERED: clonazePAM 0.5 MG TAB PO SCH (18:00)
[2020-11-08] MEDS ORDERED: NON-FORMULARY EACH (Clonazepam [Klonopin] 1 MG Tablet) PO SCH (18:00)
[2020-11-09] MEDS: lamoTRIgine 100 MG TAB PO SCH ×2 (00:18→10:19)
[2020-11-09] MEDS: LEVOTHYROXINE 50 MCG TAB PO SCH (06:23)
[2020-11-09] MEDS: HEPARIN 5,000 UNIT/1 ML VIAL SUB-Q SCH (10:19)
[2020-11-09] MEDS: levETIRAcetam 500 MG TAB PO SCH (10:19)
[2020-11-09] MEDS: FAMOTIDINE 20 MG TAB PO SCH (10:19)
[2020-11-09] MEDS: LACOSAMIDE 200 MG in SODIUM CHLORIDE 0.9% 100 ML IV SCH (10:24)
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
[2020-11-09 15:44] VITALS: BP 154/87
== END 2020-11-09 19:12 | disposition home or self-care (01) ==
LOC: ED 04:52 → 4A 11:08
PROVIDERS: ADMIT Internal Medicine; ATTEND Internal Medicine
DX: G40.909 Epilepsy, unspecified, not intractable, without status epilepticus (principal); E03.9 Hypothyroidism, unspecified; I63.9 Cerebral infarction, unspecified; M19.90 Unspecified osteoarthritis, unspecified site; R29.703 NIHSS score 3; Z86.73 Personal history of transient ischemic attack (TIA), and cerebral infarction without residual deficits; Z87.891 Personal history of nicotine dependence; Z79.899 Other long term (current) drug therapy
CPT/HCPCS: 36415; 70450; 80053; 82550; 83036; 83735; 85025; 93005; 95819; 96365; 96366; 96367; 96372; 99285; C9254; G0378; J1644; J1953; J7030

== ENCOUNTER 2020-11-17 22:30 | Emergency (ER) | payer MEDICARE ==
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
[2020-11-17] MEDS ORDERED: ACETAMINOPHEN 325 MG TAB PO STA (23:09)
[2020-11-17 23:35] LABS: Hematocrit 43.4 % (35.5-45.6); Hemoglobin 14.4 gm/dl (11.8-15.2)
[2020-11-17] MEDS ORDERED: levETIRAcetam 500 MG TAB PO ONE (23:45)
[2020-11-17] MEDS ORDERED: clonazePAM 0.5 MG TAB PO ONE (23:45)
[2020-11-17 23:48] LABS: BUN/Creatinine Ratio 9; Blood Urea Nitrogen 9 mg/dL (9-20); Hemolysis Index 14
[2020-11-17] MEDS ORDERED: lamoTRIgine 100 MG TAB PO ONE (23:50)
[2020-11-18] MEDS ORDERED: LACOSAMIDE 100 MG TAB PO ONE (00:15)
[2020-11-18 01:10] VITALS: BP 144/80
--- NOTE | 2020-11-18 11:54 | Electrocardiograph Report ---
[facility] Test Date: 2020-11-17 Test Time: 23:59:23 Pat Name: GALE RAY Department: Room: Gender: M Senior Chemist: JOEL Rodriguez : 1965 Requested By: LATOYA MCQUEEN Order Number: [id number] Reading MD: Tammy Chavez Measurements Intervals [place] Rate: 73 P: 14 CO: 153 QRS: -1 QRSD: 90 T: 70 QT: 397 QTc: 439 Interpretive Statements Sinus rhythm Compared to ECG 11/07/2020 07:24:27 No significant changes Electronically Signed On 11-18-2020 11:54:29 EDT by Tammy Chavez
== END 2020-11-18 01:12 | disposition home or self-care (01) ==
LOC: ED 22:30
DX: G40.909 Epilepsy, unspecified, not intractable, without status epilepticus (principal); M19.90 Unspecified osteoarthritis, unspecified site; Z79.899 Other long term (current) drug therapy; Z86.73 Personal history of transient ischemic attack (TIA), and cerebral infarction without residual deficits; Z98.890 Other specified postprocedural states
CPT/HCPCS: 36415; 80048; 82550; 83735; 85014; 85018; 93005

== ENCOUNTER 2020-11-24 17:29 | Emergency (ER) | payer MEDICARE ==
[2020-11-24] MEDS ORDERED: levETIRAcetam 1000 MG/NS 0.75% 1,000 MG/100 ML BAG IV ONE (20:26)
--- NOTE | 2020-11-24 20:30 | Emergency Department Report ---
ED Seizure HPI - General Stated Complaint: SEIZURE Time Seen by Provider: 11/24/20 20:26 - History of Present Illness Initial Comments: Patient is 54 years old male with history of seizure on Keppra, Vimpat and Lamictal. Patient brought to the emergency room via EMS from home for evaluation of possible seizure. Patient stated that he felt like seizure is coming on. Patient stated that he is compliant with his medication. He denied any recent head injury, fever, chills, new weakness numbness or tingling sensation. MD Complaint: possible seizure, feel seizure coming on -: This afternoon Witnessed:: Yes Trauma: No Seizure History: known seizure disorder Place: home Associated Symptoms: denies other symptoms Treatments Prior to Arrival: none - Related Data Home Medications Medication Instructions Recorded Confirmed Last Taken Levothyroxine [Synthroid] 1 tab PO QAM 11/07/20 11/07/20 11/07/20 06:00 clonazePAM [Klonopin] 1 mg PO QPM 11/07/20 11/07/20 11/07/20 06:00 Previous Rx's Medication Instructions Recorded Last Taken Type levETIRAcetam [Keppra TAB] 2,000 mg PO BID 30 Days #60 tab 11/04/20 11/07/20 06:00 Rx lamoTRIgine [LaMICtal] 200 mg PO BID #60 tab 11/07/20 Unknown Rx Famotidine [Pepcid] 20 mg PO BID #30 tablet 11/09/20 Unknown Rx Lacosamide [Vimpat] 100 mg PO Q12HR #60 tablet 11/09/20 Unknown Rx Allergies Allergy/AdvReac Type Severity Reaction Status Date / Time No Known Allergies Allergy Verified 08/25/20 12:22 ED Review of Systems ROS: Stated complaint: SEIZURE Other details as noted in HPI Comment: All other systems reviewed and negative Constitutional: denies: chills, fever Respiratory: denies: cough, shortness of breath, SOB with exertion Cardiovascular: denies: chest pain Gastrointestinal: denies: abdominal pain, nausea, vomiting Musculoskeletal: denies: back pain Neurological: denies: headache, weakness, numbness, paresthesias, confusion ED Past Medical Hx - Past Medical History Hx CVA: Yes (left side weakness) Hx Congestive Heart Failure: No Hx Diabetes: No Hx Arthritis: Yes Hx Seizures: Yes Hx Asthma: No Hx COPD: No Hx HIV: No Additional medical history: Fracture neck, TBI - Surgical History Additional Surgical History: brain - Social History Smoking Status: Never Smoker - Medications Home Medications: Home Medications Medication Instructions Recorded Confirmed Last Taken Type levETIRAcetam [Keppra TAB] 2,000 mg PO BID 30 Days #60 tab 11/04/20 11/07/20 11/07/20 06:00 Rx Levothyroxine [Synthroid] 1 tab PO QAM 11/07/20 11/07/20 11/07/20 06:00 History clonazePAM [Klonopin] 1 mg PO QPM 11/07/20 11/07/20 11/07/20 06:00 History lamoTRIgine [LaMICtal] 200 mg PO BID #60 tab 11/07/20 Unknown Rx Famotidine [Pepcid] 20 mg PO BID #30 tablet 11/09/20 Unknown Rx Lacosamide [Vimpat] 100 mg PO Q12HR #60 tablet 11/09/20 Unknown Rx ED Physical Exam - General General appearance: alert, in no apparent distress - Head Head exam: Present: atraumatic, normocephalic, normal inspection - Eye Eye exam: Present: normal appearance, PERRL - ENT ENT exam: Present: normal exam, normal orophraynx, mucous membranes moist - Neck Neck exam: Present: normal inspection, full ROM. Absent: tenderness, meningismus - Respiratory Respiratory exam: Present: normal lung sounds bilaterally - Cardiovascular Cardiovascular Exam: Present: regular rate, normal rhythm, normal heart sounds - GI/Abdominal GI/Abdominal exam: Present: soft, normal bowel sounds. Absent: distended, tenderness, guarding, rebound, rigid, organomegaly, mass, bruit, pulsatile mass, hernia - Extremities Exam Extremities exam: Present: normal inspection - Neurological Exam Neurological exam: Present: alert, oriented X3 - Psychiatric Psychiatric exam: Present: normal mood - Skin Skin exam: Present: warm ED Medical Decision Making - Lab Data Result diagrams: 11/24/20 20:43 11/24/20 20:43 - Medical Decision Making Patient is 54 years old male with history of seizure on Keppra, Vimpat and Lamictal. Patient brought to the emergency room via EMS from home for evaluation of possible seizure. Patient stated that he felt like seizure is coming on. Patient stated that he is compliant with his medication. He denied any recent head injury, fever, chills, new weakness numbness or tingling sensation. Patient received Keppra 1 g IV. Labs reviewed and is unremarkable. No seizure activity is observed in the ER. Patient be discharged home to follow-up with his neurologist Dr. Mary in the next 2 to 3 days and to return to the ER if he develop any new symptoms. Critical care attestation.: If time is entered above; I have spent that time in minutes in the direct care of this critically ill patient, excluding procedure time. ED Disposition Clinical Impression: Seizure Disposition: DC-01 TO HOME OR SELFCARE Is pt being admited?: No Condition: Stable Instructions: Managing Non-Epileptic Seizures, Adult Referrals: PRIMARY CARE, [Primary Care Provider] - 3-5 Days
[2020-11-24 21:16] LABS: Basophils % (Auto) 0.7 % (0.0-1.8); Eosinophils # (Auto) 0.2 K/mm3 (0.0-0.4); Eosinophils % (Auto) 2.6 % (0.0-4.3); Hemoglobin 13.6 gm/dl (11.8-15.2); Lymphocytes # (Auto) 1.2 K/mm3 (1.2-5.4); Lymphocytes % (Auto) 16.5 % (13.4-35.0); Mean Corpuscular HGB Conc 33 % (32-34); Mean Corpuscular Volume 96 fl (84-94); Monocytes # (Auto) 0.5 K/mm3 (0.0-0.8); Monocytes % (Auto) 7.7 % (0.0-7.3); Platelet Count 345 K/mm3 (140-440); Red Blood Count 4.26 M/mm3 (3.65-5.03); Red Cell Distribution Width 14.4 % (13.2-15.2)
[2020-11-24 21:32] LABS: Alanine Aminotransferase 12 units/L (7-56); Albumin 4.6 g/dL (3.9-5); Blood Urea Nitrogen 9 mg/dL (9-20); Calcium 9.6 mg/dL (8.4-10.2); Hemolysis Index 1
[2020-11-24 21:34] LABS: BUN/Creatinine Ratio 13; Bilirubin,Direct < 0.2 mg/dL (0-0.2)
[2020-11-25 07:55] VITALS: BP 131/72
== END 2020-11-25 07:20 | disposition home or self-care (01) ==
LOC: ED 17:29
DX: G40.909 Epilepsy, unspecified, not intractable, without status epilepticus (principal); Z86.73 Personal history of transient ischemic attack (TIA), and cerebral infarction without residual deficits; Z98.890 Other specified postprocedural states
CPT/HCPCS: 36415; 80048; 80076; 85025; 96365; 99284; J1953

== ENCOUNTER 2020-11-30 15:04 | Emergency (ER) | payer MEDICARE ==
[2020-11-30] MEDS ORDERED: levETIRAcetam 1000 MG/NS 0.75% 1,000 MG/100 ML BAG IV ONE (15:55)
--- NOTE | 2020-11-30 16:05 | Emergency Department Report ---
HPI - General Chief Complaint: Seizure Time Seen by Provider: 11/30/20 15:54 - HPI HPI: Room 22 The patient is a 54-year-old male present with a chief complaint of seizure. Patient brought in by EMS for reported seizure activity. EMS states when they arrived on scene there was no seizure activity witnessed. Patient is currently back to baseline and denies complaints. Patient states she has been compliant with his Keppra. Patient states he has an appointment to see his neurologist Dr. Rivers 12/04/2020. ED Past Medical Hx - Past Medical History Hx CVA: Yes (left side weakness) Hx Arthritis: Yes Hx Seizures: Yes Additional medical history: Fracture neck, TBI - Surgical History Additional Surgical History: brain - Family History Family history: no significant - Social History Smoking Status: Unknown if ever smoked Substance Use Type: None - Medications Home Medications: Home Medications Medication Instructions Recorded Confirmed Last Taken Type levETIRAcetam [Keppra TAB] 2,000 mg PO BID 30 Days #60 tab 11/04/20 11/07/20 11/07/20 06:00 Rx Levothyroxine [Synthroid] 1 tab PO QAM 11/07/20 11/07/20 11/07/20 06:00 History clonazePAM [Klonopin] 1 mg PO QPM 11/07/20 11/07/20 11/07/20 06:00 History lamoTRIgine [LaMICtal] 200 mg PO BID #60 tab 11/07/20 Unknown Rx Famotidine [Pepcid] 20 mg PO BID #30 tablet 11/09/20 Unknown Rx Lacosamide [Vimpat] 100 mg PO Q12HR #60 tablet 11/09/20 Unknown Rx ED Review of Systems ROS: Stated complaint: SEIZURE Other details as noted in HPI Constitutional: no symptoms reported Eyes: denies: eye pain ENT: denies: throat pain Respiratory: no symptoms reported Cardiovascular: denies: chest pain Endocrine: no symptoms reported Gastrointestinal: denies: abdominal pain Genitourinary: denies: dysuria Musculoskeletal: denies: back pain Neurological: denies: headache Physical Exam - Physical Exam Vital Signs: Vital Signs 11/30/20 15:54 Temperature 98.9 F Pulse Rate 85 Respiratory 17 Rate Blood Pressure 125/70 [Left] O2 Sat by Pulse 99 Oximetry Physical Exam: GENERAL: The patient is well-developed well-nourished male lying on stretcher not appearing to be in acute distress. [] HEENT: Normocephalic. Atraumatic. Extraocular motions are intact. Patient has moist mucous membranes. NECK: Supple. Trachea midline CHEST/LUNGS: Clear to auscultation. There is no respiratory distress noted. HEART/CARDIOVASCULAR: Regular. There is no tachycardia. There is no gallop rub or murmur. ABDOMEN: Abdomen is soft, nontender. Patient has normal bowel sounds. There is no abdominal distention. SKIN: There is no rash. There is no edema. There is no diaphoresis. NEURO: The patient is awake, alert, and oriented. The patient is cooperative. The patient has left-sided hemiparesis from previous CVA. The patient has normal speech MUSCULOSKELETAL: There is no evidence of acute injury. ED Course Vital Signs 11/30/20 15:54 Temperature 98.9 F Pulse Rate 85 Respiratory 17 Rate Blood Pressure 125/70 [Left] O2 Sat by Pulse 99 Oximetry ED Medical Decision Making - Lab Data Result diagrams: 11/30/20 16:08 11/30/20 16:08 Laboratory Tests 11/30/20 11/30/20 16:08 16:08 WBC 6.0 RBC 4.41 Hgb 14.0 Hct 42.6 MCV 96 H MCH 32 MCHC 33 RDW 14.6 Plt Count 360 Lymph % (Auto) 12.8 L [place] % (Auto) 9.1 H Eos % (Auto) 1.4 Baso % (Auto) 0.5 Lymph # (Auto) 0.8 L [place] # (Auto) 0.5 Eos # (Auto) 0.1 Baso # (Auto) 0.0 Seg Neutrophils % 76.2 H Seg Neutrophils # 4.5 Sodium 143 Potassium 3.8 Chloride 103.6 Carbon Dioxide 30 Anion Gap 13 BUN 9 Creatinine 1.0 Estimated GFR > 60 BUN/Creatinine Ratio 9 Glucose 121 H Calcium 8.8 Magnesium 2.40 H - Differential Diagnosis Seizure Critical care attestation.: If time is entered above; I have spent that time in minutes in the direct care of this critically ill patient, excluding procedure time. ED Disposition Clinical Impression: Seizure Disposition: DC-01 TO HOME OR SELFCARE Is pt being admited?: No Does the pt Need Aspirin: No Condition: Stable Instructions: Epilepsy, [id number] Additional Instructions: Return to the emergency department should you develop worsening symptoms, inability to tolerate food or liquids, high fever or any other concerns Referrals: PRIMARY CARE, [Primary Care Provider] - 3-5 Days RENARD RIVERS MD [Referring] - 12/04/20 Time of Disposition: 17:23
[2020-11-30 16:33] LABS: Basophils % (Auto) 0.5 % (0.0-1.8); Eosinophils # (Auto) 0.1 K/mm3 (0.0-0.4); Eosinophils % (Auto) 1.4 % (0.0-4.3); Hematocrit 42.6 % (35.5-45.6); Lymphocytes # (Auto) 0.8 K/mm3 (1.2-5.4); Lymphocytes % (Auto) 12.8 % (13.4-35.0); Mean Corpuscular HGB Conc 33 % (32-34); Mean Corpuscular Volume 96 fl (84-94); Monocytes # (Auto) 0.5 K/mm3 (0.0-0.8); Monocytes % (Auto) 9.1 % (0.0-7.3); Platelet Count 360 K/mm3 (140-440); Red Blood Count 4.41 M/mm3 (3.65-5.03); Red Cell Distribution Width 14.6 % (13.2-15.2)
[2020-11-30 16:49] LABS: BUN/Creatinine Ratio 9; Blood Urea Nitrogen 9 mg/dL (9-20); Calcium 8.8 mg/dL (8.4-10.2); Hemolysis Index 7
[2020-11-30 19:50] VITALS: BP 138/81
== END 2020-11-30 19:53 | disposition home or self-care (01) ==
LOC: ED 15:04
DX: G40.909 Epilepsy, unspecified, not intractable, without status epilepticus (principal); M19.90 Unspecified osteoarthritis, unspecified site; Z79.899 Other long term (current) drug therapy; Z86.73 Personal history of transient ischemic attack (TIA), and cerebral infarction without residual deficits; Z98.890 Other specified postprocedural states
CPT/HCPCS: 36415; 80048; 83735; 85025; 96365; 99283; J1953

== ENCOUNTER 2020-12-04 15:05 | Emergency (ER) | payer MEDICARE ==
--- NOTE | 2020-12-04 16:37 | Emergency Department Report ---
ED Seizure HPI - General Stated Complaint: SEIZURE Time Seen by Provider: 12/04/20 16:09 - History of Present Illness Initial Comments: 55-year-old male, history of previous CVA, seizure disorder, presents to ED with seizure-like activity. Patient states he had an appointment with his neurologist, Dr. Mary, earlier this morning. Patient states he had an EEG done in office. Patient reports he had some jerking activity to the right arm that was witnessed by his neurologist. The patient went home and upon arrival, he had jerking activity again in his right arm. Patient denies any headache or fever. States he does not know if he was given any new medications by his neurologist. MD Complaint: shaking -: This afternoon Seizure History: known seizure disorder, compliant with medication Place: home Possible Precipitating Event: none Associated Symptoms: denies other symptoms Treatments Prior to Arrival: none - Related Data Home Medications Medication Instructions Recorded Confirmed Last Taken Levothyroxine [Synthroid] 1 tab PO QAM 11/07/20 11/07/20 11/07/20 06:00 clonazePAM [Klonopin] 1 mg PO QPM 11/07/20 11/07/20 11/07/20 06:00 Previous Rx's Medication Instructions Recorded Last Taken Type levETIRAcetam [Keppra TAB] 2,000 mg PO BID 30 Days #60 tab 11/04/20 11/07/20 06:00 Rx lamoTRIgine [LaMICtal] 200 mg PO BID #60 tab 11/07/20 Unknown Rx Famotidine [Pepcid] 20 mg PO BID #30 tablet 11/09/20 Unknown Rx Lacosamide [Vimpat] 100 mg PO Q12HR #60 tablet 11/09/20 Unknown Rx levETIRAcetam [Keppra TAB] 2,000 mg PO BID 30 Days #120 tab 12/04/20 Unknown Rx Allergies Allergy/AdvReac Type Severity Reaction Status Date / Time No Known Allergies Allergy Verified 08/25/20 12:22 ED Review of Systems ROS: Stated complaint: SEIZURE Other details as noted in HPI Comment: All other systems reviewed and negative Constitutional: denies: fever Neurological: as per HPI. denies: headache ED Past Medical Hx - Past Medical History Hx CVA: Yes (left side weakness) Hx Congestive Heart Failure: No Hx Diabetes: No Hx Arthritis: Yes Hx Seizures: Yes Hx Asthma: No Hx COPD: No Hx HIV: No Additional medical history: Fracture neck, TBI - Surgical History Additional Surgical History: brain - Social History Smoking Status: Unknown if ever smoked Substance Use Type: None - Medications Home Medications: Home Medications Medication Instructions Recorded Confirmed Last Taken Type levETIRAcetam [Keppra TAB] 2,000 mg PO BID 30 Days #60 tab 11/04/20 11/07/20 11/07/20 06:00 Rx Levothyroxine [Synthroid] 1 tab PO QAM 11/07/20 11/07/20 11/07/20 06:00 History clonazePAM [Klonopin] 1 mg PO QPM 11/07/20 11/07/20 11/07/20 06:00 History lamoTRIgine [LaMICtal] 200 mg PO BID #60 tab 11/07/20 Unknown Rx Famotidine [Pepcid] 20 mg PO BID #30 tablet 11/09/20 Unknown Rx Lacosamide [Vimpat] 100 mg PO Q12HR #60 tablet 11/09/20 Unknown Rx levETIRAcetam [Keppra TAB] 2,000 mg PO BID 30 Days #120 tab 12/04/20 Unknown Rx ED Physical Exam - General General appearance: alert, in no apparent distress - Head Head exam: Present: atraumatic, normocephalic - Eye Eye exam: Present: normal appearance, EOMI - ENT ENT exam: Present: mucous membranes moist - Neck Neck exam: Present: normal inspection - Respiratory Respiratory exam: Present: normal lung sounds bilaterally. Absent: respiratory distress - Cardiovascular Cardiovascular Exam: Present: regular rate, normal rhythm - GI/Abdominal GI/Abdominal exam: Present: soft. Absent: distended, tenderness - Extremities Exam Extremities exam: Present: normal inspection - Neurological Exam Neurological exam: Present: alert, oriented X3, motor sensory deficit (baseline left-sided weaknessdue to prior CVA), other (no abnormal movements or seizure- like activity on exam) - Psychiatric Psychiatric exam: Present: normal affect, normal mood - Skin Skin exam: Present: warm, dry, intact, normal color ED Course Vital Signs 12/04/20 16:46 Temperature 98.2 F Pulse Rate 86 Respiratory 11 L Rate Blood Pressure 102/48 O2 Sat by Pulse 98 Oximetry - Consultations Consultation #1: 12/04/20 16:[address] Mary, patient's neurologist. States her EEG today show some slowing in the right hemisphere which would cause symptoms on the left side, not patient's right side. He states he did not witness this right arm spasticity earlier today. He states he told patient's vegetable packer to call him with the medications that patient has been taking, since vegetable packer has been taking patient to different ERs every time he has a seizure and patient has been prescribed different medications. Dr. Mary states he has not heard from patient's vegetable packer to give him a list of his medications. Dr Mary states to give Keppra here in the ED and discharge with prescription for Keppra 1000 mg 2 tabs p.o. twice daily. ED Medical Decision Making - Lab Data Result diagrams: 12/04/20 16:47 12/04/20 16:47 - Medical Decision Making 55-year-old male, history of seizure disorder, presents to ED with report of right arm jerking. No jerking or seizure-like activity witnessed here in the ED. Labs are unremarkable. Will discharge home. Consulted Dr. Mary, patient's neurologist. States to give prescription for Keppra 2000 mg twice daily. Patient will follow up on an outpatient basis. Critical care attestation.: If time is entered above; I have spent that time in minutes in the direct care of this critically ill patient, excluding procedure time. ED Disposition Clinical Impression: Seizure Disposition: DC-01 TO HOME OR SELFCARE Is pt being admited?: No Condition: Stable Instructions: Seizure, Adult, [id number] Prescriptions: levETIRAcetam [Keppra TAB] 2,000 mg PO BID 30 Days #120 tab Referrals: PRIMARY CARE, [Primary Care Provider] - 3-5 Days
[2020-12-04] MEDS ORDERED: levETIRAcetam 1,000 MG in SODIUM CHLORIDE 0.9% 100 ML IV ONE (16:58)
[2020-12-04 17:18] LABS: Basophils % (Auto) 0.5 % (0.0-1.8); Eosinophils # (Auto) 0.1 K/mm3 (0.0-0.4); Eosinophils % (Auto) 1.3 % (0.0-4.3); Hemoglobin 14.6 gm/dl (11.8-15.2); Lymphocytes # (Auto) 1.2 K/mm3 (1.2-5.4); Lymphocytes % (Auto) 16.5 % (13.4-35.0); Mean Corpuscular HGB Conc 33 % (32-34); Mean Corpuscular Volume 96 fl (84-94); Monocytes # (Auto) 0.6 K/mm3 (0.0-0.8); Monocytes % (Auto) 8.2 % (0.0-7.3); Platelet Count 367 K/mm3 (140-440); Red Blood Count 4.57 M/mm3 (3.65-5.03); Red Cell Distribution Width 14.6 % (13.2-15.2)
[2020-12-04 17:28] LABS: BUN/Creatinine Ratio 13; Blood Urea Nitrogen 10 mg/dL (9-20); Calcium 9.7 mg/dL (8.4-10.2); Hemolysis Index 8
[2020-12-04] MEDS ORDERED: levETIRAcetam 1000 MG/NS 0.75% 1,000 MG/100 ML BAG IV ONE (18:00)
[2020-12-04 19:53] VITALS: BP 130/77
== END 2020-12-04 19:53 | disposition home or self-care (01) ==
LOC: ED 15:05
DX: G40.909 Epilepsy, unspecified, not intractable, without status epilepticus (principal); Z79.899 Other long term (current) drug therapy; Z86.73 Personal history of transient ischemic attack (TIA), and cerebral infarction without residual deficits; Z86.69 Personal history of other diseases of the nervous system and sense organs
CPT/HCPCS: 36415; 80048; 85025; 96374; 99284; J1953